=== PATIENT | male | born 1970 | race Caucasian/White ===

== ENCOUNTER 2018-03-18 17:52 | Emergency (ER) | payer MEDICAID, SELFPAY ==
[2018-03-18 17:54] VITALS: BP 115/70; PULSE 112; RESP 16; TEMP 37.7; O2SAT 100; BMI 22.4
--- NOTE | 2018-03-18 18:16 | CT_ITS ---
STUDY: CT SOFT TISSUE NECK WITH CONTRAST REASON FOR EXAM: Male, 47 years old. LEFT SIDED NECK PAIN AND SWELLING X 3 DAYS RADIATION DOSAGE (If Supplied By Facility): CTDIvol = ( 16.51 ) mGy, DLP = ( 482.39 ) mGycm TECHNIQUE: The patient was scanned in a multi-detector CT scanner. High resolution transaxial imaging was performed following intravenous administration of 100 ml of Isovue 300 contrast material. Sagittal and coronal images were reconstructed. Individualized dose optimization techniques were used for this CT. COMPARISON: None. FINDINGS: Normal bilateral parotid glands. 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 Normal bilateral parapharyngeal spaces. Normal bilateral carotid spaces. Soft tissue inflammatory changes overlying the left side of the neck. There is underlying left-sided cervical adenopathy. Normal bilateral sublingual and submandibular glands and spaces. Normal visualized nasopharynx. Normal retropharyngeal space. Normal perivertebral space. Normal visualized bilateral faucial tonsils. The visualized tongue, tongue base and oropharynx are normal. Normal epiglottis, bilateral vallecula and hypopharynx. The pre-epiglottic and paraglottic adipose spaces are normal. Normal visualized bilateral piriform sinuses, aryepiglottic folds, vocal cords, and arytenoid-cricoid articulations. Normal subglottic trachea. Normal bilateral lobes of the thyroid gland. There are scattered blebs and bullae. This can be seen in pulmonary emphysema. Normal visualized paranasal sinuses. Normal visualized cervical spine. CT/Soft Tissue Neck WITH Contrast IMPRESSION: Soft tissue inflammatory changes overlying the left side of the neck. There is underlying left-sided cervical adenopathy. This may reflect a cellulitis. Electronically Signed: Black Gunter MD at 19:42 EDT , Service support ,
[2018-03-18] MEDS: Ketorolac 30 MG/ML Syringe IV (18:46)
[2018-03-18] MEDS: 0.9% Normal Saline 1,000 ML 999 ML IV (18:46)
[2018-03-18 18:53] LABS: Absolute Lymphocyte Count 2.36 X10^3/ul (0.83-4.51); Absolute Neutrophil Count 6.6 X10^3/uL (2.0-7.7); Basophil# 0.01 X10^3/uL; Basophil% 0.1 % (0-1); Eosinophil# 0.14 X10^3/uL; Eosinophils% 1.4 % (0-5); Hematocrit 41.3 % (40-54); Lymphocyte # 2.36 X10^3/ul (4.0); Lymphocyte % 23.9 % (19-41); Mean Corp Hgb Conc 33.9 g/gl (32-36); Mean Corpuscular Hgb 30.4 pg (27.0-32.0); Mean Corpuscular Volume 89.8 fL (80-94); Mean Platelet Vol. 9.1 fl (6.2-12.0); Monocyte# 0.74 X10^3/uL; Monocyte% 7.5 % (0-10); Neutrophil # 6.62 X10^3/uL (2.7-7.7); Neutrophil % 66.9 % (47-70); Platelet Count 252 K/mm3 (150-450); RBC Distribution Width CV 15.1 % (11.6-14.6); RBC Distribution Width SD 49.7 fl (35.1-43.9); White Blood Count 9.9 K/mm3 (4.4-11.0)
[2018-03-18 18:56] LABS: POSITIVE COUNT NO; POSITIVE DIFFERENTIAL NO; POSITIVE MORPHOLOGY NO
[2018-03-18 19:06] LABS: Anion Gap 3 (5-15); BUN 9 mg/dL (7-18); BUN/Creat Ratio 8.8 RATIO (10-20); Calcium,Total 8.7 mg/dL (8.5-10.1); Chloride 106 mmol/L (98-107); Creatinine, Serum 1.02 mg/dL (0.70-1.30); EST Glomerular Filtration Rate 84 mL/min (>60); Est Glom Filt Rate - Afr Amer 101 mL/min (>60); Estimated Creatinine Clearance 89.13 ml/min; Glucose 98 mg/dL (74-106); Potassium 4.1 mmol/L (3.5-5.1); Sodium Level 140 mmol/L (136-145)
--- NOTE | 2018-03-18 20:06 | ED.DCSUM_ITS ---
- ER Visit Summary Date of Service: 03/18/18 Chief Complaint: Left neck pain and swelling History of Present Illness: The patient is a 47 M who first noticed some swelling and tenderness along the left side of his neck yesterday. He has had some mild rhinorrhea but really no other symptoms. He denies any fever sore throat nausea vomiting diarrhea. He has no history of prior similar symptoms. He denies medical history. Physical Examination: Afebrile vitals are notable for heart rate 112 otherwise normal Moist mucous membranes Tympanic membranes normal Oropharynx clear no uvular deviation no trismus There is some slight soft tissue swelling along left side of the neck which is slightly erythematous however the patient does have some sunburn and bray on his face and neck as well so this is somewhat difficult to appreciate Heart is regular rhythm tachycardia Lungs are clear Abdomen soft Test Results: CBC BMP normal rapid strep negative. CT of the soft tissue of the neck shows left-sided inflammatory changes in cervical adenopathy otherwise normal Emergency Department Course and Treatment: Patient's workup is suggestive of cellulitis. I see no evidence of complications such as abscess. He has normal laboratory studies and I believe is a good candidate for outpatient treatment. Treated with Keflex and Bactrim. He was instructed on signs and symptoms to monitor for, conditions under which to return to the emergency department. He was discharged. Treatment Plan: [] Disposition: Discharge Impression: Cellulitis This note was generated with [employer] dictation software. It may contain incorrect words, spelling, and punctuation that were not noted in review of the chart prior to signing ED Disposition - Plan for ED Patient: Chief Complaint: General Illness Referrals: Edward Damon DO [Primary Care Provider] -
--- NOTE | 2018-03-18 20:06 | ED.DEP ---
ED Disposition - Plan for ED Patient: Chief Complaint: General Illness Instructions: ED Infec Skin Cellulitis Prescriptions: Cephalexin [Keflex] 500 mg PO Q6 #40 cap Smz/Tmp Ds [Bactrim Ds] 1 tab PO BID #20 tab Referrals: Edward Damon DO [Primary Care Provider] -
[2018-03-18 20:18] VITALS: PULSE 77; O2SAT 98
== END 2018-03-18 20:19 | disposition home or self-care (01) ==
PROVIDERS: Emergency Provider Emergency Medicine; Family Provider Preventive Medicine Occupational Medicine; PCP Preventive Medicine Occupational Medicine
DX: L03.221 Cellulitis of neck (principal); Z72.0 Tobacco use
CPT/HCPCS: 70491; 80048; 85025; 87880; 96361; 96374; 99283; J7030; Q9967; A4216

== ENCOUNTER 2018-05-09 01:23 | Emergency (ER) | payer MEDICAID, SELFPAY ==
[2018-05-09 01:24] VITALS: BP 120/87; PULSE 88; RESP 16; TEMP 37.2; O2SAT 97; BMI 22.1
--- NOTE | 2018-05-09 01:59 | CT_ITS ---
STUDY: CT SOFT TISSUE NECK WITH CONTRAST REASON FOR EXAM: Male, 47 years old. Left-sided neck mass. RADIATION DOSAGE (If Supplied By Facility): CTDIvol = ( 16.38 ) mGy, DLP = ( 400.80 ) mGycm TECHNIQUE: The patient was scanned in a multi-detector CT scanner. High resolution transaxial imaging was performed following intravenous administration of 75 ml of Isovue 370 contrast material. Sagittal and coronal images were reconstructed. Individualized dose optimization techniques were used for this CT. COMPARISON: CT of the neck dated March 18, 2018. FINDINGS: Normal bilateral parotid glands. Normal bilateral personal financial advisor spaces. Normal bilateral parapharyngeal spaces. Normal bilateral carotid spaces. Normal bilateral sublingual and submandibular glands and spaces. Normal visualized nasopharynx. Normal retropharyngeal space. Normal perivertebral space. Normal visualized bilateral faucial tonsils. The visualized tongue, tongue base and oropharynx are normal. Measuring approximately 2.0 x 2.0 x 2.4 cm in size. This is similar to the previous CT. There is an. Enlarged left-sided level 2A lymph node There is no demonstrated solid or cystic mass lesion. There is no abnormal contrast enhancement. Normal epiglottis, bilateral vallecula and hypopharynx. The pre-epiglottic and paraglottic adipose spaces are normal. Normal visualized bilateral piriform sinuses, aryepiglottic folds, vocal cords, and arytenoid-cricoid articulations. Normal subglottic trachea. Normal bilateral lobes of the thyroid gland. There are small lucencies visible the lung apices probably related to sequela of paraseptal and centrilobular emphysema. There is a small left maxillary mucous retention cyst. There are mild multilevel degenerative changes of the cervical spine. CT/Soft Tissue Neck WITH Contrast IMPRESSION: Left-sided neck mass corresponds to what probably represents an enlarged left-sided level 2A node. Differential considerations include metastatic squamous cell carcinoma, and lymphoma. Electronically Signed: Lakeisha De La Torre MD at 3:32 EDT , Service support ,
[2018-05-09] MEDS: Ketorolac 30 MG/ML Syringe IV (02:08)
[2018-05-09 02:27] LABS: Absolute Lymphocyte Count 2.89 X10^3/ul (0.83-4.51); Absolute Neutrophil Count 5.5 X10^3/uL (2.0-7.7); Basophil# 0.03 X10^3/uL; Basophil% 0.3 % (0-1); Eosinophil# 0.37 X10^3/uL; Eosinophils% 3.9 % (0-5); Hematocrit 37.7 % (40-54); Hemoglobin 12.9 g/dl (13.0-16.5); Lymphocyte # 2.89 X10^3/ul (4.0); Lymphocyte % 30.5 % (19-41); Mean Corp Hgb Conc 34.2 g/gl (32-36); Mean Corpuscular Hgb 30.7 pg (27.0-32.0); Mean Corpuscular Volume 89.8 fL (80-94); Mean Platelet Vol. 9.1 fl (6.2-12.0); Monocyte# 0.72 X10^3/uL; Monocyte% 7.6 % (0-10); Neutrophil # 5.47 X10^3/uL (2.7-7.7); Neutrophil % 57.6 % (47-70); POSITIVE COUNT NO; POSITIVE DIFFERENTIAL NO; POSITIVE MORPHOLOGY NO; Platelet Count 239 K/mm3 (150-450); RBC Distribution Width CV 14.6 % (11.6-14.6); RBC Distribution Width SD 47.3 fl (35.1-43.9); White Blood Count 9.5 K/mm3 (4.4-11.0)
[2018-05-09 02:32] LABS: Anion Gap 7 (5-15); BUN 12 mg/dL (7-18); BUN/Creat Ratio 13.1 RATIO (10-20); Calcium,Total 8.1 mg/dL (8.5-10.1); Chloride 106 mmol/L (98-107); Creatinine, Serum 0.91 mg/dL (0.70-1.30); EST Glomerular Filtration Rate 95 mL/min (>60); Est Glom Filt Rate - Afr Amer 115 mL/min (>60); Estimated Creatinine Clearance 98.65 ml/min; Glucose 97 mg/dL (74-106); Potassium 3.7 mmol/L (3.5-5.1); Sodium Level 142 mmol/L (136-145)
--- NOTE | 2018-05-09 03:50 | RAD_ITS ---
STUDY: X-RAY CHEST REASON FOR EXAM: Male, 47 years old. Cough. TECHNIQUE: PA and lateral views of the chest. COMPARISON: CT of the chest dated September 24, 2016. FINDINGS: Lungs are expanded. There appears to be bilateral interstitial thickening. There also appears to patchy left basilar airspace disease and/or atelectasis possibly secondary to pneumonia. There is no demonstrated pleural abnormality. Normal size heart. There are calcified mediastinal and hilar lymph nodes. Normal visualized pulmonary arteries. Normal visualized aortic arch and descending thoracic aorta. There are diffuse degenerative changes of the visualized thoracic spine. Normal visualized ribs, clavicles, and shoulders. There is no demonstrated abnormality of the visualized soft tissue structures of the upper abdomen. RAD/Chest PA and Lateral IMPRESSION: Patchy left basilar airspace disease and/or atelectasis. Electronically Signed: Lakeisha De La Torre MD at 4:30 EDT , Service support ,
--- NOTE | 2018-05-09 04:18 | ED.VISSUMM ---
- ER Visit Summary Date of Service: 05/09/18 Chief Complaint: [Sore throat and lump to left side of neck.] History of Present Illness: The patient is a 47 M [presents the emergency department with complaint of a left on the left side of his neck for about a month. Patient states that he was seen for the same complaint about a month ago and was started on an antibiotic but did not finish it because he went to residential. While in residential patient was given some sort of an antibiotic but they did not continue once he got released. Patient complains of a scratchy throat. Patient denies any fever. Patient denies any weight loss. Patient has no medical history however he is a smoker. Patient admits to occasional marijuana use. Patient drinks alcohol occasionally.] Physical Examination: [HEENT-PERRLA, EOMI. Cranial nerves II through XII grossly intact. TMs clear. Mucous membranes moist. Patient has a tender swollen mass to the submandibular region of the left side of the neck. There is no erythema or cellulitis associated with it. Pharynx slightly erythematous without exudates. Uvula midline and no trismus. Cardiovascular-regular rate and rhythm without murmur or ectopy Lungs-clear to auscultation, chest wall stable without crepitus or subcu emphysema Abdomen-normoactive bowel sounds, soft, nontender, no rebound or rigidity, no peritoneal signs. Extremities-intact ?4, normal range of motion, normal pulses, atraumatic] Test Results: [CBC with differential obtained was normal. Chemistries were normal. Strep screen was negative. Throat culture was sent. CT scan of the neck obtained showed enlarged level 2A lymph node. The differential includes metastatic squamous cell carcinoma versus lymphoma.] Chest x-ray obtained showed left lower lobe airspace disease versus atelectasis. Emergency Department Course and Treatment: [Patient will be started on doxycycline and will be referred to ENT for follow-up. At this point patient understands is unclear the etiology of the enlarged lymph node in the left side of his neck. I discussed the possibility of metastatic carcinoma versus lymphoma. Patient understands the importance of following up to further evaluate and understands that he may need a biopsy of this area.] Treatment Plan: [Patient will be referred to ENT for follow-up and will be started on doxycycline] Disposition: [Discharged home in stable condition] Impression: [Left neck mass] This note was generated with [employer] dictation software. It may contain incorrect words, spelling, and punctuation that were not noted in review of the chart prior to signing ED Disposition - Plan for ED Patient: Chief Complaint: Sore Throat Referrals: Ewdard Damon DO [Primary Care Provider] -
--- NOTE | 2018-05-09 04:40 | ED.DEP ---
ED Disposition - Plan for ED Patient: Chief Complaint: Sore Throat Instructions: ED Cervical Adenitis Abx Tx Prescriptions: Doxycycline Monohydrate 100 mg PO BID #20 cap Referrals: Edward Damon DO [Primary Care Provider] - Wesley Godoy MD [STAFF PHYSICIAN] - 3-5 Days Additional Instructions: You have a left neck mass/ swollen Lymph node that is concerning for Metastatic Squamous Cell carcinoma versus Lymphoma. You need further testing to evaluate this . Follow up with DR. Godoy for further evaluation. I also advise you to quit smoking.
--- NOTE | 2018-05-09 04:44 | ED.DEP ---
ED Disposition - Plan for ED Patient: Chief Complaint: Sore Throat Instructions: ED Cervical Adenitis Abx Tx Prescriptions: Doxycycline Monohydrate 100 mg PO BID #20 cap Referrals: Wesley Godoy MD [STAFF PHYSICIAN] - 3-5 Days Edward Damon DO [Primary Care Provider] - Additional Instructions: You have a left neck mass/ swollen Lymph node that is concerning for Metastatic Squamous Cell carcinoma versus Lymphoma. You need further testing to evaluate this . Follow up with DR. Godoy for further evaluation. I also advise you to quit smoking.
[2018-05-09 05:05] VITALS: BP 100/68; PULSE 77; RESP 16; O2SAT 98
== END 2018-05-09 05:05 | disposition home or self-care (01) ==
PROVIDERS: Emergency Provider Emergency Medicine; Family Provider Preventive Medicine Occupational Medicine; PCP Preventive Medicine Occupational Medicine
DX: R22.1 Localized swelling, mass and lump, neck (principal); F12.90 Cannabis use, unspecified, uncomplicated; Z72.0 Tobacco use
CPT/HCPCS: 70491; 71046; 80048; 85025; 87070; 87077; 87880; 96374; 99283; Q9967; A4216

== ENCOUNTER 2019-07-25 17:51 | Emergency (ER) | payer MEDICAID, SELFPAY ==
[2019-07-25 17:52] VITALS: BP 116/79; PULSE 121; RESP 16; TEMP 36.7; O2SAT 95; BMI 24.3
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
[2019-07-25] MEDS: HYDROcodone Bitartrate/Apap 5/325 Tablet PO (18:37)
--- NOTE | 2019-07-25 18:44 | RAD_ITS ---
STUDY: X-RAY - UNILATERAL RIBS ( LEFT ) WITH CHEST REASON FOR EXAM: Male, 49 years old. Pain TECHNIQUE - RIBS: 4 view(s) of the ribs. TECHNIQUE - CHEST: Frontal view COMPARISON: None. FINDINGS - RIBS: Normal visualized ribs without a demonstrated fracture. FINDINGS - CHEST: The lungs are expanded. Left upper lobe calcified granuloma. Normal size heart. Normal mediastinum and nitesh. Normal visualized pulmonary arteries. Normal visualized aortic arch and descending thoracic aorta. Degenerative changes of the thoracic spine. Normal visualized ribs, clavicles, and shoulders. There is no demonstrated abnormality of the visualized soft tissue structures of the upper abdomen. RAD/Ribs Uni Min 3V w/PA Chest IMPRESSION: RIBS: Normal x-ray examination of the ribs. CHEST: No acute pulmonary pathology of the chest. Electronically Signed: Ananth Calderón DO at 19:13 EDT Tel [phone], Service support ,
[2019-07-25 19:54] VITALS: PULSE 78; RESP 18; O2SAT 94
== END 2019-07-25 19:55 | disposition home or self-care (01) ==
PROVIDERS: Emergency Provider Emergency Medicine; Family Provider Preventive Medicine Occupational Medicine; PCP Preventive Medicine Occupational Medicine
DX: S20.212A Contusion of left front wall of thorax, initial encounter (principal); Y04.2XXA Assault by strike against or bumped into by another person, initial encounter; Y93.89 Activity, other specified; Y92.149 Unspecified place in prison as the place of occurrence of the external cause; F17.200 Nicotine dependence, unspecified, uncomplicated
CPT/HCPCS: 71101; 99283

== ENCOUNTER 2020-04-27 10:59 | Emergency (ER) | payer MEDICAID, SELFPAY ==
[2020-04-27 11:00] VITALS: BP 129/94; PULSE 89; RESP 28; TEMP 37.2; O2SAT 99; BMI 21.4
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
[2020-04-27] MEDS: Acetaminophen 500 MG Tablet 1000 MG PO (12:06)
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
[2020-04-27 13:00] VITALS: BP 102/76; PULSE 80; RESP 17; O2SAT 100
--- NOTE | 2020-04-27 13:00 | ED.RN ---
DISCHARGE INSTRUCTIONS GIVEN TO AND REVIEWED WITH PATIENT, PATIENT DENIES QUESTIONS OR CONCERNS AND VOICES UNDERSTANDING OF DISCHARGE INSTRUCTIONS. PT AMBULATES OUT OF ROOM WITHOUT DIFFICULTY.
== END 2020-04-27 13:01 | disposition home or self-care (01) ==
LOC: ED 12:22
PROVIDERS: Emergency Provider Emergency Medicine; PCP Preventive Medicine Occupational Medicine
DX: R07.89 Other chest pain (principal); Z72.0 Tobacco use
CPT/HCPCS: 71045; 99284

== ENCOUNTER 2021-04-08 14:50 | Emergency (ER) | payer MEDICAID, SELFPAY ==
[2021-04-08 14:50] VITALS: BP 117/81; PULSE 95; RESP 14; TEMP 36.4; O2SAT 97; BMI 27.6
--- NOTE | 2021-04-08 15:19 | EDS_ITS ---
HPI History of Present Illness Chief Complaint: Laceration Informant: patient Occured/Mechanism Comment: Accidentally cut with a knife Onset/Context/Timing Onset: Today Context: Sudden Onset Timing: Continuous Quality of Pain: Aching and Throbbing Worsened by: Nothing Relieved by: Nothing Associated Symptoms Associated Symptoms: Positive for Parasthesia and Loss of Funtion; Negative for Weakness Narrative Narrative: Patient presents with a laceration to his right thumb that occurred today. Patient states he was using a knife to cut a car. Patient states the knife accidentally closed up on his right thumb. Patient admits to some tingling in the tip of his finger. Patient denies any weakness. Patient states the bleeding has been persistent. Patient states his last tetanus was within 5 years. Patient denies any other injuries. Tetanus Immunization: <5 years PFSH PFSH no medical history Allergy/AdvReac Type Severity Reaction Status Date / Time No Known Allergies Allergy Verified 04/08/21 14:52 no surgical history Social History Smoking Status: Current every day smoker tobacco type: cigarettes ROS ROS ED Constitutional Constitutional ED: Denies chills or fever(s) Eyes Eyes: Denies blurry vision or change in vision ENT ENT ED: Denies rhinorrhea or sore throat Cardiovascular Cardiovascular: Denies chest pain or palpitations Respiratory/Chest Respiratory/Chest: Denies cough or dyspnea Gastrointestinal Gastrointestinal: Denies nausea or vomiting Genitourinary Genitourinary ED: Denies dysuria or hematuria Musculoskeletal Musculoskeletal: Denies back pain or neck pain Integumentary Denies abscess or rash Neurologic Neurologic: Denies headache(s) or weakness Allergic/Immunologic Allergic/Immunologic ED: Denies mouth swelling or urticaria EXAM Physical Exam Const Vital Signs: 04/08/21 14:50 Temperature 97.5 F L Temperature Source Temporal Pulse Rate 95 Respiratory Rate 14 Blood Pressure 117/81 H Blood Pressure Mean 93 Pulse Ox 97 Oxygen Delivery Method Room Air Positive well nourished and well developed General Appearance ED: well developed HEENT Reports moist mucous membranes Neck full ROM and supple Extremity Right Upper Extremity: hand and digits inspection (There is a 2 cm full- thickness linear flap laceration on the dorsal aspect of the right thumb just ulnar to the nailbed and nail plate. There is moderate bleeding. There are no foreign bodies.), palpation (There is no tenderness to palpation.), ROM (There is full range of motion of the IP and MP joints of the right thumb), neurovascular exam (Capillary refill was less than 2 seconds in all digits. Sensation was intact to light touch in all digits.) and tendon exam (There are no tendon lacerations noted.) Neuro oriented x3, CN's II-XII intact bilaterally, moves all extremities, no focal motor deficits and no sensory deficits noted Sensorium / Orientation: alert Psych mental status grossly normal MDM MDM MDM Narrative Medical decision making narrative: The wound was cleaned and irrigated with copious amounts normal saline. LET gel was applied to the wound. The wound was closed with Dermabond skin adhesive. Patient tolerated the procedure well. Patient was instructed to keep the wound clean and dry. Patient was instructed to avoid bacitracin, Neosporin, triple antibiotic ointment, or other Vaseline- based ointments. Patient was instructed to follow-up with his primary care physician in 5 to 7 days. Patient was instructed return if worse in any way. Patient understood and was agreeable with the plan. All questions were answered. Procedures Lacerations Right thumb: Length: 1.5 cm Depth: Skin Shape: Linear Prep: Sterile Conditions and Chlorhexadine Laceration repair: Wound explored and - (Dermabond) Comment: The wound was closed with Dermabond skin adhesive. Discharge Plan Triage Chief Complaint: Laceration ED Provider: Wesley Cerna Dx/Rx/DC Orders Clinical Impression: Laceration of right thumb Instructions: ED Laceration, Extremity: Skin Glue Primary Care Provider: Care Physician,No Primary Referrals: Paddy Vázquez MD [STAFF PHYSICIAN] - 5-7 Days Care Physician,No Primary [Primary Care Provider] - Disposition Disposition: Home, self care
[2021-04-08] MEDS: Lidocaine/Epi/Tetracaine 50 ML 1 APPLIC TOPICAL (15:45)
--- NOTE | 2021-04-08 16:51 | ED.RN ---
PT REFUSES D/C VS.
== END 2021-04-08 16:53 | disposition home or self-care (01) ==
PROVIDERS: Emergency Provider Emergency Medicine
DX: S61.011A Laceration without foreign body of right thumb without damage to nail, initial encounter (principal); F17.210 Nicotine dependence, cigarettes, uncomplicated; W26.0XXA Contact with knife, initial encounter
CPT/HCPCS: G0168; 99282

== ENCOUNTER 2021-07-24 04:43 | Emergency (ER) | payer MEDICAID, SELFPAY ==
[2021-07-24 04:44] VITALS: BP 135/95; PULSE 92; RESP 16; TEMP 36.4; O2SAT 99; BMI 24.3
--- NOTE | 2021-07-24 04:58 | EX.ED.DYSGE1 ---
HPI History of Present Illness Chief Complaint: Other, Pain/Inj Informant: patient Narrative Narrative: 51-year-old male states that he has ticks inside of his body. He states that he had some removed from his feet at an outside hospital but did not get all of them. He states he has been pushing the ticks out of his eyes all night. When asked if he could do that now he states it is not able to be done. He states he needs the overhead lamp turned on him which will draw the text out of his stomach in his chest. He denies taking any drugs. He denies any suicidal or homicidal ideation. PFSH PFS Medical History unable to obtain no medical history Home Medications NK 07/24/21 [History Last Taken Unknown] Allergy/AdvReac Type Severity Reaction Status Date / Time No Known Allergies Allergy Verified 07/24/21 04:46 Surgical History unable to obtain Social History (Updated 07/24/21 @ 04:[address] Tu Eubanks, DO) current gender identity: male Smoking Status: Current every day smoker tobacco type: cigarettes ROS ROS ED Constitutional Constitutional ED: Denies chills or weight loss Eyes Eyes: Denies change in vision or diplopia ENT ENT ED: Denies ear pain, rhinorrhea or sore throat Cardiovascular Cardiovascular: Denies chest pain, orthopnea, palpitations or racing heartbeat Respiratory/Chest Respiratory/Chest: Denies cough, dyspnea or orthopnea Gastrointestinal Gastrointestinal: Denies abdominal pain, diarrhea, nausea or vomiting Genitourinary Genitourinary ED: Denies dysuria, hematuria or urinary frequency Musculoskeletal Musculoskeletal: Denies arthralgias or myalgias Integumentary Denies abscess or rash Neurologic Neurologic: Denies headache(s) or weakness Psychiatric Psychiatric: Denies anxiety, depression, suicidal ideation or suicidal thoughts Endocrine Endocrinology: Denies polydipsia, polyphagia or polyuria Allergic/Immunologic Allergic/Immunologic ED: Denies mouth swelling, tongue swelling or urticaria EXAM Physical Exam Const Vital Signs: 07/24/21 04:44 07/24/21 04:52 Temperature 97.6 F L Temperature Source Temporal Pulse Rate 92 Respiratory Rate 16 Respiratory Effort Normal Respiratory Pattern Normal Blood Pressure 135/95 H Blood Pressure Mean 108 Pulse Ox 99 Positive well nourished, well developed and unkempt General Appearance ED: unkempt and well developed HEENT Reports normocephalic, head/scalp atraumatic and moist mucous membranes Eyes PERRL and EOMs intact bilaterally Neck no lymphadenopathy, supple and no JVD Resp normal respiratory effort and clear to auscultation bilaterally Cardio regular rate, regular rhythm and no murmurs GI normal to inspection, nondistended, normoactive bowel sounds and non-tender Palpation: soft Back/Spine no CVA tenderness and normal ROM Extremity normal to inspection General Extremety ED: Negative for edema General Extremity: Negative for edema Neuro oriented x3 and CN's II-XII intact bilaterally Sensorium / Orientation: alert Motor Exam: strength 5/5 throughout Psych mental status grossly normal Appearance: unkempt Attitude: No agitated Mood & Affect: Negative for depressed, anxious or tearful Skin no rashes or lesions noted and no wounds MDM MDM MDM Narrative Medical decision making narrative: I turned the overhead light on like the patient suggested but nothing happened. I informed him I do not believe I am able to help him tonight. I do not believe the patient has a medical emergency that I am able to assist him with. Discharge Plan Triage Chief Complaint: Other, Pain/Inj ED Provider: Tu Eubanks Dx/Rx/DC Orders Clinical Impression: Delusions of parasitosis Prescriptions: No Action NK RF: 0 Primary Care Provider: Care Physician,No Primary Referrals: Katlin Joe [NON-STAFF] - As Needed (for primary care) Care Physician,No Primary [Primary Care Provider] - Disposition Disposition: Home, Self Care
== END 2021-07-24 05:11 | disposition home or self-care (01) ==
LOC: ED 05:01
PROVIDERS: Emergency Provider Emergency Medicine
DX: F22 Delusional disorders (principal); F17.210 Nicotine dependence, cigarettes, uncomplicated
CPT/HCPCS: 99282

== ENCOUNTER 2021-08-25 02:28 | Emergency (ER) | payer MEDICAID, SELFPAY ==
[2021-08-25 02:30] VITALS: BP 109/74; PULSE 97; RESP 16; TEMP 36.6; O2SAT 98; BMI 21.8
--- NOTE | 2021-08-25 02:36 | RAD_ITS ---
STUDY: X-RAY CHEST REASON FOR EXAM: Male, 51 years old. Midsternal chest pain TECHNIQUE: PA and lateral views of the chest. COMPARISON: 04/27/2020 FINDINGS: Mild prominence of interstitial markings at bilateral lung bases, unchanged. There is no demonstrated pleural abnormality. No pneumothorax. Normal size heart. Normal mediastinum and nitesh. Normal visualized pulmonary arteries. There is atherosclerotic calcification of the aortic arch . Mild S-shaped scoliosis of the thoracolumbar spine with multilevel degenerative change. Normal visualized ribs, clavicles, and shoulders. There is no demonstrated abnormality of the visualized soft tissue structures of the upper abdomen. RAD/Chest PA and Lateral IMPRESSION: Chronic bibasilar interstitial change with no acute cardiopulmonary disease Electronically Signed: Ashwin Hoang MD at 3:14 EDT Tel , Service support ,
--- NOTE | 2021-08-25 02:36 | EKG12_ITS ---
Test Reason : CP Blood Pressure : / mmHG Vent. Rate : 091 BPM Atrial Rate : 091 BPM P-R Int : 142 ms QRS Dur : 082 ms QT Int : 380 ms P-R-T Axes : 071 068 050 degrees QTc Int : 467 ms Normal sinus rhythm Normal ECG Confirmed by RYLEY VIVEROS, ADAM ([id number]), greeting card editor AYALA SURESH ([id number]) on 08/31/2021 8:27:35 AM Referred By: BUBBA Confirmed By:ADAM HEDRICK MD
--- NOTE | 2021-08-25 02:37 | ED.VIS.CHEST ---
HPI History of Present Illness Chief Complaint: Nausea/Vomiting Detail of Chief Complaint: Chest pain with nausea Informant: patient Onset/Context/Timing Onset: Hours Activity at onset: sudden and rest Timing: Continuous Quality: Positive for Sharp Location: Substernal Current Severity: Mild Maximum Severity: Severe Worsened By: Nothing Relieved By: Nothing Associated Symptoms: Negative for Nausea, Vomiting, Diaphoresis, Dyspnea, Cough, Fever, Lightheadedness, Acid Reflux and Palpitations Narrative Narrative: Patient is a middle-age male with no significant past medical history on no medication who presents with sharp midsternal chest pain with no associated symptoms or radiation. He denies history of VTE. He denies leg pain, swelling discoloration. He denies change in the color, consistency or caliber of his stool. He denies any viral upper respiratory symptoms. He does endorse smoking 1 pack/day since the age of 13. There is no known coronary disease in the family. There is no known history of biliary disease. He denies intolerance to greasy or fried foods. He denies history of coronary disease in the family Prior Similar Symptoms: Yes (1 year ago and etiology was undetermined) Recent Illness/Hospitalization: No CVD Risk Factors: Positive for Smoking; Negative for Hypertension, Diabetes, Hypercholesterolemia and Family History 1' </=55 PE Risk Factors: Negative for Recent Travel/Surgery, Recent Immobilization, Prior DVT or PE, Cancer and OCP + Smoking + >/=35 TAD Risk Factors: Negative for Marfan's Syndrome, Hypertension and Family History PFSH PFSH Medical History no medical history no medical history Home Medications NK 07/24/21 [History Last Taken Unknown] Allergy/AdvReac Type Severity Reaction Status Date / Time No Known Allergies Allergy Verified 08/25/21 02:30 Family History no significant family his no significant family history Surgical History unable to obtain no surgical history Social History (Updated 08/25/21 @ 02:[address] Edward Yu MD) household members: none Smoking Status: Current every day smoker tobacco type: cigarettes alcohol intake: current alcohol intake frequency: holidays/special occasions only substance use type: marijuana ROS ROS ED Constitutional Constitutional ED: Reports sweats, weight loss and other Details: Patient reports 5 pound weight loss that was unintentional over the last month and night sweats for the past 2 to 3 weeks ; Denies chills, fever(s) or subjective Eyes Eyes: Reports none ENT ENT ED: Denies ear pain, rhinorrhea or sore throat Cardiovascular Cardiovascular: Reports as per HPI; Denies orthopnea Respiratory/Chest Respiratory/Chest: Denies cough, dyspnea, dyspnea on exertion, orthopnea or sputum Gastrointestinal Gastrointestinal: Denies abdominal pain, diarrhea, melena, nausea or vomiting Musculoskeletal Musculoskeletal: Denies arthralgias, back pain, myalgias or neck pain Integumentary Denies rash Neurologic Neurologic: Denies paresthesias or weakness Endocrine Endocrinology: Denies polydipsia, polyphagia or polyuria Hematologic/Lymphatic Hematologic/Lymphatic: Denies easy bleeding or easy bruising EXAM Physical Exam Const Vital Signs: 08/25/21 02:30 08/25/21 04:03 Temperature 97.8 F Temperature Source Temporal Pulse Rate 97 Respiratory Rate 16 Blood Pressure 109/74 102/72 Blood Pressure Mean 85 82 Pulse Ox 98 Oxygen Delivery Method Room Air Positive well nourished and well developed General Appearance ED: well developed and NAD; Negative for pallor HEENT Reports moist mucous membranes HEENT Narrative: Ears are normal. Nares are patent. Posterior pharynx unremarkable. normocephalic and atraumatic Eyes PERRL and EOMs intact bilaterally General Eye ED: Negative for pale conjunctiva or scleral icterus Neck no lymphadenopathy, supple and no JVD Chest Wall inspection of chest normal Resp normal respiratory effort and clear to auscultation bilaterally Effort and Inspection: respiratory distress Cardio regular rate, regular rhythm, S1 normal heart sound, S2 normal heart sound and no murmurs GI normal to inspection, nondistended, normoactive bowel sounds, soft to palpation, non-tender, non-distended and no masses GI Narrative: There is no pulsatile mass or abdominal bruit appreciated Back/Spine no CVA tenderness and no thoracic nor lumbar tenderness Extremity normal to inspection Extremity Narrative: There is no asymmetry, swelling, discoloration, leg vein distention, palpable cords or tenderness along the distribution of the deep venous system. Neuro oriented x3 and CN's II-XII intact bilaterally Sensorium / Orientation: awake and alert Psych mental status grossly normal Skin no rashes or lesions noted and no wounds General Skin Exam: Negative for jaundice or pallor Heart Score History: Slightly/Non-Suspicious ECG: Normal Age: >45 - <65 years Risk Factors: 1 or 2 Risk Factors Score: 2 MDM MDM MDM Narrative Medical decision making narrative: Patient with atypical chest discomfort. Differential includes cardiac versus noncardiac etiology. Patient is PERC negative. With reported night sweats and weight loss need to consider malignancy. Patient was reassessed at 0311. He is now complaining of nausea. Zofran was ordered. He still having discomfort. Based on location will treat with GI cocktail since this is not concerning for cardiac at this point. Patient was informed that his first troponin is normal however since it is greater than 3 a 2-hour needs to be drawn. Of note patient had to be awakened to inform him of his results. Lab Data Attestation: I reviewed the patient's lab results. Lab results narrative: First troponin is 9. Since his less than three 2-hour troponin was ordered. CBC reveals mild anemia. Basic metabolic panel reveals a slightly low potassium at 3.2 and slightly elevated BUN to creatinine ratio. Delta is 1. Patient states the pain is subsiding. He was given a GI cocktail. Labs: Laboratory Results - last 24 hr 08/25/21 08/25/21 08/25/21 02:29 02:29 04:29 WBC 9.6 RBC 4.46 L Hgb 12.9 L Hct 38.8 L MCV 87.0 MCH 28.9 MCHC 33.2 RDW Std Deviation 50.1 H RDW Coeff of Caterina 15.6 H Plt Count 280 MPV 9.4 Immature Gran % (Auto) 0.200 Neut % (Auto) 60.1 Lymph % (Auto) 27.6 Russell % (Auto) 8.3 Eos % (Auto) 3.5 Baso % (Auto) 0.3 Absolute Neuts (auto) 5.8 Absolute Lymphs (auto) 2.66 Nucleated RBC % 0 Sodium 139 Potassium 3.2 L Chloride 106 Carbon Dioxide 25.0 Anion Gap 8 BUN 23 H Creatinine 1.10 Estim Creat Clear Calc 76.98 Est GFR (MDRD) Af Amer 91 Est GFR (MDRD) Non-Af 76 BUN/Creatinine Ratio 20.9 H Glucose 96 Calcium 9.0 Troponin I High Sens 9 10 Radiography Chest X-Ray - ED: 2 View, Read by ED Physician (2 view chest x-ray interpreted by me at 0252. There is slight hyperaeration and granulomatous disease noted left perihilar region.), Normal, Heart, Bony Structures, No Acute Disease and Chronic Changes Diagnostic Testing: Clinical Impression(s) from Imaging Studies Chest X-Ray 08/25/21 02:36 IMPRESSION: Chronic bibasilar interstitial change with no acute cardiopulmonary disease Electronically Signed: Ashwin Hoang MD at 3:14 EDT Tel , Service support , EKG Initial EKG: Attestation: I personally reviewed and interpreted this EKG as follows: Interpretation: Sinus Rhythm (Ventricular rate 91. EKG is normal. IN interval is 142 ms. QS duration 82 ms. QT duration 380 ms. [place] is normal. There is no ischemic changes noted. This was obtained with symptoms) Discharge Plan Triage Chief Complaint: Nausea/Vomiting ED Provider: Edward Yu Dx/Rx/DC Orders Clinical Impression: Chest pain of unknown etiology Instructions: ED Chest Pain, Noncardiac Prescriptions: No Action NK RF: 0 Primary Care Provider: Care Physician,No Primary Referrals: Care Physician,No Primary [Primary Care Provider] - Doctor,Your [STAFF PHYSICIAN] - 3-5 Days if not improving Disposition Disposition: Home, Self Care
[2021-08-25 02:43] LABS: Absolute Lymphocyte Count 2.66 X10^3/uL (0.83-4.51); Absolute Neutrophil Count 5.8 X10^3/uL (2.0-7.7); Basophil# 0.03 X10^3/uL; Basophil% 0.3 % (0-1); Eosinophil# 0.34 X10^3/uL; Eosinophils% 3.5 % (0-5); Hematocrit 38.8 % (40-54); Hemoglobin 12.9 g/dL (13.0-16.5); Lymphocyte # 2.66 X10^3/ul (0.83-4.51); Lymphocyte % 27.6 % (19-41); Mean Corp Hgb Conc 33.2 g/dL (32-36); Mean Corpuscular Hgb 28.9 pg (27.0-32.0); Mean Platelet Vol. 9.4 fl (6.2-12.0); Monocyte% 8.3 % (0-10); NRBC Flagged by Analyzer 0 % (0-5); Neutrophil # 5.79 X10^3/uL (2.7-7.7); Neutrophil % 60.1 % (47-70); Platelet Count 280 K/mm3 (150-450); RBC Distribution Width CV 15.6 % (11.6-14.6); RBC Distribution Width SD 50.1 fl (35.1-43.9); Red Blood Count 4.46 M/mm3 (4.6-6.2); White Blood Count 9.6 K/mm3 (4.4-11.0)
[2021-08-25 02:56] LABS: Anion Gap 8 (5-15); BUN 23 mg/dL (7-18); BUN/Creat Ratio 20.9 RATIO (10-20); Chloride 106 mmol/L (98-107); EST Glomerular Filtration Rate 76 mL/min (>60); Est Glom Filt Rate - Afr Amer 91 mL/min (>60); Estimated Creatinine Clearance 76.98 ml/min; Glucose 96 mg/dL (74-106); Potassium 3.2 mmol/L (3.5-5.1); Sodium Level 139 mmol/L (136-145); Troponin-I HS 9 pg/mL (3.0-78.0)
[2021-08-25] MEDS: Mag Hydrox/Al Hydrox/Simeth 30 ML UDC PO (03:40)
[2021-08-25] MEDS: Ondansetron 4 MG/2 ML Vial IV (03:40)
[2021-08-25 04:03] VITALS: BP 102/72
[2021-08-25 04:58] LABS: Troponin-I HS 10 pg/mL (3.0-78.0)
== END 2021-08-25 05:23 | disposition home or self-care (01) ==
PROVIDERS: Emergency Provider Emergency Medicine
DX: R07.9 Chest pain, unspecified (principal); R11.2 Nausea with vomiting, unspecified; F17.210 Nicotine dependence, cigarettes, uncomplicated
CPT/HCPCS: 71046; 80048; 84484; 85025; 93005; 96374; 99285; A4216; J2405

== ENCOUNTER 2022-01-28 08:38 | Emergency (ER) | payer MEDICAID, SELFPAY ==
[2022-01-28 08:39] VITALS: BP 136/91; PULSE 99; RESP 16; TEMP 36.1; O2SAT 95; BMI 19.9
[2022-01-28 08:45] VITALS: BP 136/91; PULSE 99; RESP 16; TEMP 36.1; O2SAT 95
[2022-01-28] MEDS: Cephalexin 250 MG Capsule 500 MG PO (09:22)
--- NOTE | 2022-01-28 09:22 | EX.ED.DYSGE1 ---
HPI History of Present Illness Chief Complaint: General Illness Informant: patient Narrative Narrative: Presents for evaluation of rash right abdomen and right arm. Initial month ago rash left lower abdomen when he went to longterm states shortly after leaving he developed rash on his right side that is pruritic. States this morning rash on his right arm. No fevers. Denies change in soaps or detergents. Denies any medications. No other complaints. Prior similar symptoms: No PFSH PFSH Home Medications cephalexin 500 mg PO Q6 #40 cap 01/28/22 [Rx Last Taken Unknown] hydrocortisone 1 applic TOPICAL BID 14 Days #28.35 g 01/28/22 [Rx Last Taken Unknown] Allergy/AdvReac Type Severity Reaction Status Date / Time No Known Allergies Allergy Verified 08/25/21 02:30 Social History household members: none Smoking Status: Current every day smoker tobacco type: cigarettes alcohol intake: current alcohol intake frequency: holidays/special occasions only substance use type: marijuana ROS ROS ED Constitutional Constitutional ED: Denies chills, fever(s) or sweats Eyes Eyes: Denies change in vision ENT ENT ED: Denies dysphagia or sore throat Cardiovascular Cardiovascular: Denies chest pain, leg edema, palpitations or racing heartbeat Respiratory/Chest Respiratory/Chest: Denies cough, dyspnea or dyspnea on exertion Gastrointestinal Gastrointestinal: Denies abdominal pain, diarrhea, nausea or vomiting Genitourinary Genitourinary ED: Denies dysuria, hematuria or urinary frequency Musculoskeletal Musculoskeletal: Denies back pain, extremity pain or neck pain Integumentary Reports rash; Denies wounds Neurologic Neurologic: Denies headache(s), paresthesias or weakness EXAM Physical Exam Const Vital Signs: 01/28/22 08:39 01/28/22 08:45 01/28/22 08:48 Temperature 97.0 F L 97.0 F L Temperature Source Temporal Temporal Pulse Rate 99 99 Respiratory Rate 16 16 Respiratory Effort Normal Non-Labored Respiratory Pattern Normal Blood Pressure 136/91 H 136/91 H Blood Pressure Mean 106 106 Pulse Ox 95 95 Oxygen Delivery Method Room Air Room Air Positive well nourished and well developed General Appearance ED: well developed and NAD HEENT Reports moist mucous membranes normocephalic and atraumatic Eyes PERRL, EOMs intact bilaterally and conjunctivae normal General Eye ED: Yes normal appearance of both eyes Neck no lymphadenopathy and supple General: Negative for tenderness Chest Wall Chest: Negative for tenderness Resp normal respiratory effort and normal air movement Effort and Inspection: symmetric chest movement; Negative for respiratory distress Cardio regular rate, regular rhythm and no murmurs Peripheral Pulses: pulses 2+ throughout GI normal to inspection, nondistended, normoactive bowel sounds and non-tender Palpation: Negative for guarding or rebound tenderness present Back/Spine no CVA tenderness and no thoracic nor lumbar tenderness Extremity normal to inspection General Extremety ED: Negative for edema or tenderness General Extremity: Negative for edema Neuro oriented x3 and no sensory deficits noted Sensorium / Orientation: awake and alert Skin no rashes or lesions noted and no wounds Skin Narrative: Raise papular rash noted on diagram below. There were excoriations with scabbing. There is no induration. No drainage. No vesicular lesions noted. Resolved rash in left lower quadrant of abdomen. Image ED - Body Diagram Man: 1. 2. 3. 4. 5. 6. MDM MDM MDM Narrative Medical decision making narrative: Patient nonspecific dermatitis with excoriations. He was exposed in longterm prior to symptoms starting could be a contact dermatitis. There is excoriations erythema over the papular regions. With pruritic symptoms provide hydrocortisone cream, will cover with Keflex for concerns of superinfection with cellulitis due to excoriations. He is given follow-up as an outpatient. Discharge Plan Triage Chief Complaint: General Illness ED Provider: Desmond Warren Dx/Rx/DC Orders Clinical Impression: Acute dermatitis, Rash, Cellulitis Instructions: Cellulitis, ED Atopic Dermatitis (Adult) Prescriptions: New cephalexin [cephalexin] 500 MG capsule 500 mg PO Q6 Qty: 40 RF: 0 hydrocortisone 2.5 % ointment 1 applic topical BID 14 Days Qty: 28.35 RF: 0 Primary Care Provider: Care Physician,No Primary Referrals: Katlin Joe [NON-STAFF] - 1 Week if not improving Care Physician,No Primary [Primary Care Provider] - Disposition Disposition: Home, Self Care Discharge Date/Time: 01/28/22 09:24
== END 2022-01-28 09:24 | disposition home or self-care (01) ==
PROVIDERS: Emergency Provider Emergency Medicine; Visit Provider Emergency Medicine
DX: L30.9 Dermatitis, unspecified (principal); L03.311 Cellulitis of abdominal wall; L03.113 Cellulitis of right upper limb; F17.210 Nicotine dependence, cigarettes, uncomplicated
CPT/HCPCS: 99283; A4216

== ENCOUNTER 2022-07-20 03:47 | Emergency (ER) | payer MEDICAID, SELFPAY ==
--- NOTE | 2022-07-20 04:00 | RAD_ITS ---
STUDY: X-RAY CHEST REASON FOR EXAM: Male, 52 years old. Cough and weakness TECHNIQUE: Single AP portable view of the chest. COMPARISON: 04/27/2020 FINDINGS: The lungs are clear and expanded. There is no demonstrated pleural abnormality. Normal size heart. Normal mediastinum and nitesh. Normal visualized pulmonary arteries. Normal visualized aortic arch and descending thoracic aorta. Mild S-shaped scoliosis of the thoracolumbar spine with multilevel degenerative change. Normal visualized ribs, clavicles, and shoulders. There is no demonstrated abnormality of the visualized soft tissue structures of the upper abdomen. RAD/Chest PA and Lateral IMPRESSION: No acute cardiopulmonary disease Electronically Signed: Ashwin Hoang MD at 4:42 EDT ,
--- NOTE | 2022-07-20 05:30 | EX.ED.DYSGE1 ---
HPI History of Present Illness Informant: patient and EMS Onset/Context/Timing Onset: Hours (several) Context: Gradual Onset Timing: Continuous Quality: lightheaded Location: head Current Severity: Mild Maximum Severity: Moderate Worsened by: standing Relieved by: lying down Associated Symptoms Associated Symptoms: minor [employer] cough, myalgias, malaise, like something crawling in my veins Narrative Narrative: States for the last couple hours she has felt lightheaded and shaky. He also states he feels like something is crawling around in the veins of his arms and wants us to do a whole-body scan to figure out what is wrong. He states earlier than this he was feeling fine. He denies any other focal symptoms except for nausea. No headache, abdominal pain, shortness of breath, fevers or chills recently. Patient denies any vertiginous symptoms, or changes in his vision/diplopia. Moving his head does not change his symptoms but standing up does make him more lightheaded. He has had no loss of consciousness or near-syncope. PFSH PFSH unable to obtain (Patient states he does not know) no surgical history ROS ROS ED Constitutional Constitutional ED: Reports body ache(s) and malaise; Denies chills or fever(s) Eyes Eyes: Denies change in vision or diplopia ENT ENT ED: Denies rhinorrhea or sore throat Cardiovascular Cardiovascular: Reports lightheadedness; Denies chest pain or palpitations Respiratory/Chest Respiratory/Chest: Reports cough; Denies dyspnea Gastrointestinal Gastrointestinal: Reports nausea; Denies abdominal pain, diarrhea or vomiting Genitourinary Genitourinary ED: Denies dysuria or hematuria Musculoskeletal Musculoskeletal: Denies back pain or neck pain Integumentary Denies abscess or rash Neurologic Neurologic: Denies headache(s), paresthesias or weakness Psychiatric Psychiatric: Denies anxiety or suicidal thoughts EXAM Physical Exam Const Positive well nourished, well developed and unkempt General Appearance ED: unkempt, well developed and NAD HEENT Reports moist mucous membranes normocephalic and atraumatic Eyes PERRL and EOMs intact bilaterally Neck full ROM and supple Chest Wall inspection of chest normal and palpation of chest normal Resp normal respiratory effort and clear to auscultation bilaterally Cardio regular rate, regular rhythm and no murmurs Rate: Negative for tachycardic GI normal to inspection, nondistended, normoactive bowel sounds, non-tender and non-distended Auscultation: normoactive bowel sounds Palpation: soft Back/Spine no CVA tenderness General Back: other FROM Extremity Extremity Narrative: Scattered round nontender raised sores right forearm. No expressible discharge or bleeding. None on the left. Full range of motion throughout all joints. Not edematous. No palpable cords. General Extremety ED: Negative for edema, pulses abnormal or tenderness General Extremity: Negative for edema or pulses abnormal Neuro oriented x3, CN's II-XII intact bilaterally and no sensory deficits noted Sensorium / Orientation: awake and alert Motor Exam: strength 5/5 throughout Psych Appearance: unkempt Skin no rashes or lesions noted Skin Narrative: Several discrete right forearm wounds/lesions. See above. Do not appear infected. MDM MDM MDM Narrative Medical decision making narrative: Patient was seen during computer downtime, this documentation was entered after the fact. I reviewed his labs on paper, white blood count 11.28, hemoglobin 13.1, platelets 283. On his chemistries, his BUN is 25 with a creatinine of 1.09, and the rest of his electrolytes are all within normal limits. This is consistent with being mildly prerenal, and his orthostatics were mildly positive with a heart rate increase of about 40 when he went from sitting to standing and he was symptomatically lightheaded without syncope or near syncope. His COVID is negative. 2 view chest x-ray on my interpretation normal, radiology in agreement. We placed an IV and give him a liter of fluid he felt much better on reevaluation was ambulatory without dizziness and discharged in stable improved condition. Lab Data Attestation: I reviewed the patient's lab results. Discharge Plan Triage ED Provider: Fuad Santoyo Dx/Rx/DC Orders Clinical Impression: Mild dehydration, Orthostatic hypotension Instructions: ED Hypotension, Orthostatic Primary Care Provider: Care Physician,No Primary Referrals: Katlin Joe [Non-Staff] - 3-5 Days if not improving Care Physician,No Primary [Primary Care Provider] - Disposition Disposition: Home, Self Care
[2022-07-20 08:11] LABS: Hematocrit 39.8 % (40-54); Hemoglobin 13.1 g/dL (13.0-16.5); Mean Corpuscular Volume 89.6 fL (80-94); Red Blood Count 4.44 M/mm3 (4.6-6.2); White Blood Count 11.3 K/mm3 (4.4-11.0)
[2022-07-20 08:12] LABS: Mean Corp Hgb Conc 32.9 g/dL (32-36); Mean Corpuscular Hgb 29.5 pg (27.0-32.0); Mean Platelet Vol. 8.9 fl (6.2-12.0); Monocyte% 5.4 % (0-10); Neutrophil % 80.2 % (47-70); Platelet Count 283 K/mm3 (150-450); RBC Distribution Width SD 46.1 fl (35.1-43.9)
[2022-07-20 08:13] LABS: Absolute Lymphocyte Count 1.35 X10^3/uL (0.83-4.51); Absolute Neutrophil Count 9.1 X10^3/uL (2.0-7.7); Basophil% 0.5 % (0-1); Eosinophils% 1.6 % (0-5); Lymphocyte # 1.35 X10^3/ul (0.83-4.51); Monocyte# 0.61 X10^3/uL; Neutrophil # 9.05 X10^3/uL (2.7-7.7)
[2022-07-20 08:14] LABS: Basophil# 0.06 X10^3/uL
[2022-07-20 08:15] LABS: Eosinophil# 0.18 X10^3/uL
[2022-07-20 08:18] LABS: Anion Gap 8 (5-15); BUN 25 mg/dL (7-18); BUN/Creat Ratio 22.9 RATIO (10-20); Calcium,Total 9.1 mg/dL (8.5-10.1); Chloride 105 mmol/L (98-107); Creatinine, Serum 1.09 mg/dL (0.70-1.30); EST Glomerular Filtration Rate 76 mL/min (>60); Est Glom Filt Rate - Afr Amer 92 mL/min (>60); Glucose 141 mg/dL (74-106); Potassium 3.6 mmol/L (3.5-5.1); Sodium Level 140 mmol/L (136-145)
== END 2022-07-20 05:31 | disposition home or self-care (01) ==
PROVIDERS: Emergency Provider Emergency Medicine; Visit Provider Emergency Medicine
DX: I95.1 Orthostatic hypotension (principal); E86.0 Dehydration
CPT/HCPCS: 36415; 71046; 80048; 85025; 87811; 99284

== ENCOUNTER 2022-11-24 22:35 | Inpatient (IN) | payer MEDICAID, SELFPAY ==
[2022-11-24 22:36] VITALS: BP 112/72; PULSE 88; RESP 13; TEMP 35.7; O2SAT 94; BMI 23.3
--- NOTE | 2022-11-24 22:45 | EDS_ITS ---
HPI History of Present Illness Chief Complaint: Overdose Narrative Narrative: Patient is a 52-year-old male brought in by EMS secondary to overdose. EMS states that they were called by the patient's mother and reportedly found him unresponsive. They state when they arrived he was unresponsive but breathing. They administered intranasal and then intravenous Narcan and patient had improvement of his mental status. Patient is still mildly obtunded upon arrival and does not offer any further history PFSH PFS unable to obtain Home Medications cephalexin 500 mg capsule 500 mg PO Q6 #40 caps 01/28/22 [Rx Last Taken Unknown] hydrocortisone 2.5 % topical ointment 1 applic topical BID 14 days #28.35 grams 01/28/22 [Rx Last Taken Unknown] Allergy/AdvReac Type Severity Reaction Status Date / Time No Known Allergies Allergy Verified 08/10/22 10:15 Family History (Updated 11/25/22 @ 03:[address] Ana Maria Vazquez MD) Mother Diabetes Heart disease Social History (Updated 11/25/22 @ 03:[address] Ana Maria Vazquez MD) household members: family and none Smoking Status: Current every day smoker tobacco type: cigarettes alcohol intake: current alcohol intake frequency: holidays/special occasions only substance use type: marijuana, heroin and opiates ROS ROS ED Review of Systems ROS Unobtainable: due to mental status EXAM Physical Exam Const Vital Signs: 11/24/22 22:36 11/24/22 23:08 11/24/22 23:30 Temperature 96.2 F L Temperature Source Temporal Pulse Rate 88 84 86 Respiratory Rate 13 14 15 Blood Pressure 112/72 115/79 105/77 Blood Pressure Mean 85 91 86 Pulse Ox 94 94 99 Oxygen Delivery Method Room Air Room Air Room Air Oxygen Flow Rate (L/min) 11/25/22 00:47 11/25/22 01:38 11/25/22 02:03 Temperature Temperature Source Pulse Rate 75 85 Respiratory Rate 10 L 9 L Blood Pressure 127/87 H 121/77 H Blood Pressure Mean 100 91 Pulse Ox 100 99 99 Oxygen Delivery Method Nasal Cannula Nasal Cannula Nasal Cannula Oxygen Flow Rate (L/min) 3 3 3 Positive well nourished and well developed General Appearance ED: well developed HEENT Reports moist mucous membranes HEENT Narrative: No tongue or lip swelling. no obvious signs of pain patches on the oral mucosa Head is normocephalic and atraumatic Eyes Eyes Narrative: Pupils are pinpoint and minimally responsive to light secondary to opioid overdose Neck Neck Narrative: No bony deformity or step-off of the cervical spine Chest Wall palpation of chest normal Chest Narrative: No bony deformity or crepitance noted Resp Resp Narrative: Breath sounds are diminished throughout with brief episodes of of apneic spells. Otherwise lungs display faint wheeze and rhonchi in the bilateral lower lobes Cardio regular rate and regular rhythm Rate: other Other Details: Radial pulses are plus 2 out of 4 bilaterally are equal and symmetric GI non-distended and no masses GI Narrative: Abdomen is soft and nondistended with hypoactive bowel sounds consistent with apparent opioid use. No pulsatile mass noted Extremity normal to inspection Neuro Neuro Narrative: Patient is obtunded but will awake to loud voice or touch. He will move all extremities. There are no focal neurologic deficit. When patient awakes he will answer questions appropriately such as what his name is. He does slur speech but according to family this is his baseline. GCS of 13 Psych Psych Narrative: Patient is obtunded Skin no rashes or lesions noted Skin Narrative: No signs of infection or trauma noted MDM MDM MDM Narrative Medical decision making narrative: Patient presented to the ER with stable vitals and a history consistent with opioid overdose. His mental status was continuing to diminish however and he was falling asleep without stimulation and his breathing was becoming more shallow and diminished so he was given more Narcan. Upon receiving this his mental status and breathing improved. However this event of depressed mental status with worsening respirations reoccurred on 4 separate occasions each requiring Narcan to improve his mental status. As it has been approximately 2 hours since arrival and he required Narcan by EMS but also multiple doses in the ER and to improve his mental status and respiratory depression the decision was made to check basic laboratory studies and start him on a Narcan drip. Patient's white count is elevated at 20.3 but I do believe this is related to stress response and not secondary infectious process as chest x-ray reveals no acute infection and his exam shows no signs of infection otherwise. The patient was found to have a plastic bag filled with a white powdered substance which I believe is the synthetic opioid he used this evening. This was removed from him so he cannot try to take more while in the ER and please were called to remove the substance. At this time with the patient requiring recurrent doses of Narcan that has led to him needing a drip and his mental status still remains depressed from most likely the synthetic opioid that was found on his person he will be admitted to the hospital for continued observation. Despite the titration of the Narcan drip and having the patient in the ER for approximately 4 hours his recurrent depressed mental status as well as bouts of apnea persisted. Therefore the decision was made to intubate the patient for airway protection and to ensure there is no further bouts of apnea. This was done as documented below. Also after discussing the case with the hospitalist it was decided to perform a head CT based on his persistent obtunded status which revealed no signs of acute bleed. Therefore this time patient does not have obvious changes of acute stroke even though his white count is elevated I feel this is from stress response as there is no secondary changes to suggest infection based on his physical exam. Repeat chest x-ray did show developing opacities but as patient's had bouts of apnea and poor inspiration this is most likely atelectasis. He will need to be admitted and watched in the hospital because of the persistent depressed mental status and apnea spells most likely from his synthetic opioid overdose Patient was intubated using the glide scope. Patient was given 20 mg of etomidate and 100 mg of succinylcholine. Following this the cords were visualized with the glide scope and a 7.5 ET tube was passed. Confirmation was by bilateral breath sounds fogging of the tube and color change capnography. Patient taught procedure well without complication Lab Data Attestation: I reviewed the patient's lab results. Labs: Laboratory Results - last 24 hr 11/25/22 11/25/22 11/25/22 00:30 00:30 00:30 WBC 20.3 H RBC 4.63 Hgb 13.2 Hct 41.3 MCV 89.2 MCH 28.5 MCHC 32.0 RDW Std Deviation 46.4 H RDW Coeff of Caterina 14.4 Plt Count 279 MPV 8.8 Immature Gran % (Auto) 0.600 Neut % (Auto) 84.1 H Lymph % (Auto) 8.5 L [place] % (Auto) 5.8 Eos % (Auto) 0.8 Baso % (Auto) 0.2 Absolute Neuts (auto) 17.0 H Absolute Lymphs (auto) 1.73 Nucleated RBC % 0 Sodium 140 Potassium 4.1 Chloride 106 Carbon Dioxide 30.0 Anion Gap 4 L BUN 27 H Creatinine 0.93 Estim Creat Clear Calc 95.03 Est GFR (MDRD) Af Amer 110 Est GFR (MDRD) Non-Af 91 BUN/Creatinine Ratio 29.0 H Glucose 93 Calcium 8.7 Salicylates < 1.7 L Urine Opiates Screen Urine Methadone Screen Acetaminophen < 2.0 L Ur Barbiturates Screen Ur Phencyclidine Scrn Ur Amphetamines Screen MDMA (Ecstasy) Screen U Benzodiazepines Scrn Urine Cocaine Screen U Cannabinoids Screen Ur Drug Screen Comment Ethyl Alcohol < 3.0 11/25/22 00:30 WBC RBC Hgb Hct MCV MCH MCHC RDW Std Deviation RDW Coeff of Caterina Plt Count MPV Immature Gran % (Auto) Neut % (Auto) Lymph % (Auto) [place] % (Auto) Eos % (Auto) Baso % (Auto) Absolute Neuts (auto) Absolute Lymphs (auto) Nucleated RBC % Sodium Potassium Chloride Carbon Dioxide Anion Gap BUN Creatinine Estim Creat Clear Calc Est GFR (MDRD) Af Amer Est GFR (MDRD) Non-Af BUN/Creatinine Ratio Glucose Calcium Salicylates Urine Opiates Screen NEGATIVE Urine Methadone Screen NEGATIVE Acetaminophen Ur Barbiturates Screen NEGATIVE Ur Phencyclidine Scrn NEGATIVE Ur Amphetamines Screen POSITIVE H MDMA (Ecstasy) Screen NEGATIVE U Benzodiazepines Scrn NEGATIVE Urine Cocaine Screen NEGATIVE U Cannabinoids Screen POSITIVE H Ur Drug Screen Comment Ethyl Alcohol Radiography Diagnostic Testing: Clinical Impression(s) from Imaging Studies Chest X-Ray 11/25/22 00:25 IMPRESSION: No acute findings. 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 Electronically Signed: Dave Holcomb MD at 0:48 EST Reading Location ID and State: [address] [place] [address] Tel , Service support , Brain CT 11/25/22 02:17 IMPRESSION: No acute intracranial findings. Electronically Signed: Dave Holcomb MD at 3:44 EST Reading Location ID and State: [address] [place] [address] Tel , Service support , 1 view chest x-ray as interpreted by the emergency medicine physician reveals no acute infiltrate pneumothorax or pleural effusion Repeat chest x-ray status post intubation as interpreted by the emergency medicine physician reveals ET tube in satisfactory position with hazy opacities in the bilateral lower lobes most consistent with atelectasis. Critical Care Time Critical Care Time: Yes Critical care time (excluding procedures): Discussing w/Patient &/or Family/Teacher Physically Impaired, Discussing w/Consultants and - (Critical care time of 33 minutes) Discharge Plan Dx/Rx/DC Orders Clinical Impression: Opioid overdose, Respiratory acidosis, Leukocytosis, Acute respiratory failure Disposition Disposition: Acute Care Hospital [facility]
[2022-11-24] MEDS: Naloxone 2 MG/2 ML Syringe 1 MG IV ×2 (22:50→23:28)
[2022-11-24] MEDS: Ondansetron 4 MG/2 ML Vial IV (23:07)
[2022-11-24 23:08] VITALS: BP 115/79; PULSE 84; RESP 14; O2SAT 94
[2022-11-24 23:30] VITALS: BP 105/77; PULSE 86; RESP 15; O2SAT 99
[2022-11-25] VITALS (37 sets, daily range): BP systolic 90–141; BP diastolic 60–96; PULSE 68–101; RESP 9–26; TEMP 36.6–37.7; O2SAT 89–100; BMI 19.8
[2022-11-25] MEDS: Naloxone 2 MG/2 ML Syringe 1 MG IV (00:22)
--- NOTE | 2022-11-25 00:25 | RAD_ITS ---
STUDY: X-RAY CHEST REASON FOR EXAM: Male, 52 years old. Short of breath. TECHNIQUE: AP COMPARISON: 07/12/2022 CXR FINDINGS: No evidence of pneumonia, pulmonary edema, pneumothorax or pleural effusion. Mildly lucent and hyperinflated lungs. Calcified granuloma left lateral mid/upper lung. Cardiac silhouette, hilar and mediastinal contours with no acute findings. Atherosclerosis of the thoracic aorta. Degenerative osseous changes with no acute osseous abnormality. RAD/Chest 1 View (Portable) IMPRESSION: No acute findings. 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 Electronically Signed: Dave Holcomb MD at 0:48 EST Reading Location ID and State: [facility] / [place] Tel , Service support ,
[2022-11-25] MEDS: 0.9% Normal Saline 1,000 ML 999 ML IV (00:30)
[2022-11-25 00:35] LABS: Absolute Lymphocyte Count 1.73 X10^3/uL (0.83-4.51); Basophil# 0.04 X10^3/uL; Basophil% 0.2 % (0-1); Eosinophil# 0.17 X10^3/uL; Eosinophils% 0.8 % (0-5); Hematocrit 41.3 % (40-54); Hemoglobin 13.2 g/dL (13.0-16.5); Lymphocyte # 1.73 X10^3/ul (0.83-4.51); Lymphocyte % 8.5 % (19-41); Mean Corpuscular Hgb 28.5 pg (27.0-32.0); Mean Corpuscular Volume 89.2 fL (80-94); Mean Platelet Vol. 8.8 fl (6.2-12.0); Monocyte# 1.18 X10^3/uL; Monocyte% 5.8 % (0-10); NRBC Flagged by Analyzer 0 % (0-5); Neutrophil # 17.04 X10^3/uL (2.7-7.7); Neutrophil % 84.1 % (47-70); Platelet Count 279 K/mm3 (150-450); RBC Distribution Width CV 14.4 % (11.6-14.6); RBC Distribution Width SD 46.4 fl (35.1-43.9); Red Blood Count 4.63 M/mm3 (4.6-6.2); White Blood Count 20.3 K/mm3 (4.4-11.0)
[2022-11-25 00:50] LABS: Anion Gap 4 (5-15); BUN 27 mg/dL (7-18); Calcium,Total 8.7 mg/dL (8.5-10.1); Chloride 106 mmol/L (98-107); Creatinine, Serum 0.93 mg/dL (0.70-1.30); EST Glomerular Filtration Rate 91 mL/min (>60); Est Glom Filt Rate - Afr Amer 110 mL/min (>60); Estimated Creatinine Clearance 95.03 ml/min; Glucose 93 mg/dL (74-106); Potassium 4.1 mmol/L (3.5-5.1); Sodium Level 140 mmol/L (136-145)
[2022-11-25 00:53] LABS: Amphetamine Urine VISTA POSITIVE (<1000 ng/mL); Barbiturate Urine VISTA NEGATIVE (< 200 ng/mL); Benzodiazepine Urine VISTA NEGATIVE (< 200 ng/mL); Cocaine Urine VISTA NEGATIVE (< 300 ng/mL); Ecstacy Urine VISTA NEGATIVE (< 500 ng/mL); Methadone Urine VISTA NEGATIVE (< 300 ng/mL); PCP Urine VISTA NEGATIVE (< 25 ng/mL); THC Urine VISTA POSITIVE (< 50 ng/mL); Vista UDS pH Range 5
[2022-11-25 00:58] LABS: Acetaminophen (Tylenol) Level < 2.0 ug/mL (10.0-30.0); Alcohol, Blood (Medical)-Serum < 3.0 mg/dL; Salicylate < 1.7 mg/dL (2.8-20.0)
--- NOTE | 2022-11-25 02:17 | CT_ITS ---
STUDY: CT BRAIN WITHOUT CONTRAST REASON FOR EXAM: Male, 52 years old. AMS TECHNIQUE: Transaxial CT imaging of the brain was performed without administration of intravenous contrast material. Individualized dose optimization techniques were used for this CT. COMPARISON: 11/25/2015 CT brain. FINDINGS: No evidence of intracranial hemorrhage, mass, acute infarct, or hydrocephalus. Atherosclerosis of the intracranial arteries. No acute osseous abnormality. Visualized paranasal sinuses and mastoid air cells patent. Visualized extracranial soft tissues unremarkable. ASPECTS 08/01 CT/Brain/Head without Contrast IMPRESSION: No acute intracranial findings. Electronically Signed: Dave Holcomb MD at 3:44 EST Reading Location ID and State: [facility] / [place] Tel , Service support ,
--- NOTE | 2022-11-25 02:23 | PCM.HP.STD ---
HPI - General General Date of Admission: 11/25/22 Date of Service: 11/25/22 Chief Complaint: Altered mental status - 1 day HPI Narrative RONNIE PETTIT, is a 52 M who presents with the above. Patient has past medical history of polysubstance use, daily opioid use who was found unresponsive this evening. Patient lives with his mother. He was said to have been looking for trash bag in the kitchen when his mother found him unresponsive lying on his side. The EMS were called. The police found a bag of white powder on him. Patient was said to be apneic and unresponsive. He did respond with multiple doses of Narcan but lasts for a very short while. In the emergency room, he would awaken after being given bolus doses Narcan and then go back into unresponsiveness. He was transitioned to a Narcan drip after a couple of doses of IV Narcan. Patient remained intermittently unresponsive after almost 4 hours of treatment with Narcan drip. Patient was noted several times to be severely apneic, requiring sternal rubs every few minutes to keep him awake. ABGs done showed acute respiratory acidosis, with pH of 7.26, PCO2 63.4, PO2 113. He was intubated over concerns of inability to maintain his airway. Initially in the emergency room, his BP was 112/72, heart rate 88, respiratory rate 18, temperature 96.2 F, oxygen sat was 94% on 3 L of oxygen. His WBC count is 20.3, hemoglobin 13.2, platelet count 279. BMP is unremarkable except for BUn 27, Cr 0.93. Urine tox is positive for amphetamines and cannabinoids [facility] Medical History unable to obtain no medical history Home Medications cephalexin 500 mg capsule 500 mg PO Q6 #40 caps 01/28/22 [Rx Last Taken Unknown] hydrocortisone 2.5 % topical ointment 1 applic topical BID 14 days #28.35 grams 01/28/22 [Rx Last Taken Unknown] Allergy/AdvReac Type Severity Reaction Status Date / Time No Known Allergies Allergy Verified 08/10/22 10:15 Family History (Updated 11/25/22 @ 03:[address] Ana Maria Vazquez MD) Mother Diabetes Heart disease Surgical History no surgical history no surgical history Social History (Updated 11/25/22 @ 03:[address] Ana Maria Vazquez MD) household members: family and none Smoking Status: Current every day smoker tobacco type: cigarettes alcohol intake: current alcohol intake frequency: holidays/special occasions only substance use type: marijuana, heroin and opiates ROS Review of Systems ROS Unobtainable: due to encephalopathy and due to mental condition Vital Signs Vital Signs Vital Signs: 11/24/22 22:36 11/24/22 23:08 11/24/22 23:30 Temperature 96.2 F L Temperature Source Temporal Pulse Rate 88 84 86 Respiratory Rate 13 14 15 Blood Pressure 112/72 115/79 105/77 Blood Pressure Mean 85 91 86 Pulse Ox 94 94 99 Oxygen Delivery Method Room Air Room Air Room Air Oxygen Flow Rate (L/min) 11/25/22 00:47 11/25/22 01:38 11/25/22 02:03 Temperature Temperature Source Pulse Rate 75 85 Respiratory Rate 10 L 9 L Blood Pressure 127/87 H 121/77 H Blood Pressure Mean 100 91 Pulse Ox 100 99 99 Oxygen Delivery Method Nasal Cannula Nasal Cannula Nasal Cannula Oxygen Flow Rate (L/min) 3 3 3 Weight Weight: 71.9 kg Body Mass Index (BMI) 23.3 Physical Exam Narrative Physical exam: General: Alert, lethargic, will awaken to had sternal rub for a few seconds and go back to sleep HEENT: Atraumatic, pinpoint pupils Oral: Moist Mucosa Neck: Supple Lungs: Diminished to auscultation Cardiovascular: HS I+II, regular, no murmurs Abdomen: Bowel Sounds Present, Soft, Non Tender Extremities: No edema Skin: No rashes, No breakdown Neurological: Grossly intact Psych/Mental Status: Appropriate Results Lab / Micro Data Result Diagrams: 11/25/22 00:30 11/25/22 00:30 Labs: Laboratory Results - last 24 hr 11/25/22 00:30: WBC 20.3 H, RBC 4.63, Hgb 13.2, Hct 41.3, MCV 89.2, MCH 28.5, MCHC 32.0, RDW Std Deviation 46.4 H, RDW Coeff of Caterina 14.4, Plt Count 279, MPV 8.8, Immature Gran % (Auto) 0.600, Neut % (Auto) 84.1 H, Lymph % (Auto) 8.5 L, [place] % (Auto) 5.8, Eos % (Auto) 0.8, Baso % (Auto) 0.2, Absolute Neuts (auto) 17.0 H, Absolute Lymphs (auto) 1.73, Nucleated RBC % 0 11/25/22 00:30: Sodium 140, Potassium 4.1, Chloride 106, Carbon Dioxide 30.0, Anion Gap 4 L, BUN 27 H, Creatinine 0.93, Estim Creat Clear Calc 95.03, Est GFR (MDRD) Af Amer 110, Est GFR (MDRD) Non-Af 91, BUN/Creatinine Ratio 29.0 H, Glucose 93, Calcium 8.7 11/25/22 00:30: Salicylates < 1.7 L, Acetaminophen < 2.0 L, Ethyl Alcohol < 3.0 11/25/22 00:30: Urine Opiates Screen NEGATIVE, Urine Methadone Screen NEGATIVE, Ur Barbiturates Screen NEGATIVE, Ur Phencyclidine Scrn NEGATIVE, Ur Amphetamines Screen POSITIVE H, MDMA (Ecstasy) Screen NEGATIVE, U Benzodiazepines Scrn NEGATIVE, Urine Cocaine Screen NEGATIVE, U Cannabinoids Screen POSITIVE H, Ur Drug Screen Comment Radiology Impression Chest X-Ray 11/25/22 00:25 IMPRESSION: No acute findings. 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 Electronically Signed: Dave Holcomb MD at 0:48 EST Reading Location ID and State: [address] [place] [address] Tel , Service support , Assessment & Plan Assessment/Plan (1) Opioid overdose: (2) Respiratory acidosis: (3) Altered mental status: PLAN: Plan 1. Altered mental status secondary to acute toxic encephalopathy/opioid overdose/hypercapnic respiratory failure Patient intubated to protect airway, s/p intubation now. CT of the brain is unremarkable We will admit to ICU, continue to monitor the mechanical ventilator Patient has not required any use of IV fentanyl or propofol drips Will monitor for use of the above Repeat ABG 2. Acute hypercapnic respiratory failure secondary to 1, status post intubation ABG showed pH of 7.29, PCO2 63 Patient with repeated apneic episodes, status post intubation Management as above 3. Polysubstance use, urine tox positive for amphetamine, cannabinoids Patient with suspected long acting synthetic opioid not easily detected on urine tox 4. DVT PPx- Lovenox SC Total time spent: 75 minutes of which a greater part was spent in reviewing patient's chart, laboratory investigations, imaging, talking to his ex- and daughter at the bedside, physical examining patient, discussing with emergency room physician. Charges/Coding Visit Charges Inpatient E&M: 11072 Init Hosp L3
[2022-11-25 02:36] LABS: Allen Test Positive; Base Excess 1 mmol/L (-2 to +2); Bicarbonate 28.2 mmol/L (22-26); Blood Gas Specimen Type ART; O2 Delivery Device Cannula; PO2 113 mmHG (75-100); SITE L Radial; SO2 97 % (95-99); Total Carbon Dioxide 30 mmol/L; pCO2 63.4 mmHg (35-45); pH 7.26 (7.35-7.45)
[2022-11-25] MEDS: Succinylcholine Chloride 200 MG/10 ML SYRINGE 100 MG IV (03:07)
[2022-11-25] MEDS: Etomidate 20 MG/10 ML Vial IV (03:07)
--- NOTE | 2022-11-25 03:15 | RAD_ITS ---
INDICATION: s/p intubation EXAMINATION/TECHNIQUE: X-RAY - XR Chest 1 View AP portable. 3:20 AM. COMPARISON: 12:29 AM. FINDINGS: LINES/DEVICES: The endotracheal tube is 4 cm above the august. Tip of the nasogastric tube is in the proximal stomach with sidehole at the level of the GE junction. LUNGS: Patchy opacities in the lung bases, increased compared to the prior. No pneumothorax. MEDIASTINUM: Unremarkable. CARDIAC SILHOUETTE: Not enlarged. BONES AND SOFT TISSUES: No acute abnormalities. RAD/Chest 1 View (Portable) IMPRESSION: 1. Satisfactory ET tube position. 2. NG tube as described. 3. Increased basilar opacities may be atelectasis or developing infiltrates. Electronically Signed: Janeth James MD at 3:56 EST ,
[2022-11-25] MEDS: 0.9% Normal Saline 1,000 ML 75 ML IV ×2 (03:57→16:48)
[2022-11-25 04:43] LABS: Absolute Lymphocyte Count 1.06 X10^3/uL (0.83-4.51); Absolute Neutrophil Count 7.7 X10^3/uL (2.0-7.7); Basophil# 0.02 X10^3/uL; Basophil% 0.2 % (0-1); Eosinophil# 0.03 X10^3/uL; Eosinophils% 0.3 % (0-5); Hematocrit 39.2 % (40-54); Hemoglobin 12.6 g/dL (13.0-16.5); Lymphocyte # 1.06 X10^3/ul (0.83-4.51); Lymphocyte % 11.4 % (19-41); Mean Corp Hgb Conc 32.1 g/dL (32-36); Mean Corpuscular Hgb 28.5 pg (27.0-32.0); Mean Corpuscular Volume 88.7 fL (80-94); Mean Platelet Vol. 9.2 fl (6.2-12.0); Monocyte# 0.38 X10^3/uL; Monocyte% 4.1 % (0-10); NRBC Flagged by Analyzer 0 % (0-5); Neutrophil # 7.74 X10^3/uL (2.7-7.7); Neutrophil % 83.5 % (47-70); Platelet Count 240 K/mm3 (150-450); RBC Distribution Width CV 14.4 % (11.6-14.6); RBC Distribution Width SD 46.8 fl (35.1-43.9); Red Blood Count 4.42 M/mm3 (4.6-6.2); White Blood Count 9.3 K/mm3 (4.4-11.0)
[2022-11-25 05:01] LABS: ALB/GLOB Ratio 0.8 RATIO (0.9-2.4); AST(SGOT) 24 U/L (15-37); Alanine Aminotransfer ALT/SGPT 23 U/L (16-61); Albumin, Serum 3.2 g/dL (3.2-5.0); Alkaline Phosphatase 47 U/L (45-117); Anion Gap 6 (5-15); BUN 20 mg/dL (7-18); BUN/Creat Ratio 30.2 RATIO (10-20); Bilirubin, Direct 0.24 mg/dL (0.00-0.30); Calcium,Total 8.3 mg/dL (8.5-10.1); Chloride 104 mmol/L (98-107); Creatinine, Serum 0.66 mg/dL (0.70-1.30); EST Glomerular Filtration Rate 135 mL/min (>60); Est Glom Filt Rate - Afr Amer 163 mL/min (>60); Estimated Creatinine Clearance 118.94 ml/min; Globulin 3.8 g/dL (2.2-4.2); Glucose 93 mg/dL (74-106); Potassium 4.5 mmol/L (3.5-5.1); Sodium Level 137 mmol/L (136-145)
[2022-11-25 07:35] LABS: Allen Test Positive; Base Excess 2 mmol/L (-2 to +2); Bicarbonate 26.4 mmol/L (22-26); Blood Gas Specimen Type ART; FI02 30; Mode AC; O2 Delivery Device Adult Vent; PEEP 5; PO2 106 mmHG (75-100); RR 14; SITE R Radial; SO2 98 % (95-99); Total Carbon Dioxide 28 mmol/L; Vt 450; pCO2 41.7 mmHg (35-45); pH 7.41 (7.35-7.45)
--- NOTE | 2022-11-25 08:26 | EX.PCM.CONCC ---
Assessment & Plan Assessment/Plan (1) Acute respiratory failure: (2) Altered mental status: (3) Opioid overdose: PLAN: Plan RECOMMENDATIONS: 1. Continue mechanical ventilation pending patient response 2. Monitor cranial nerves while holding sedation 3. Monitor for possible alcohol/opiate withdrawal 4. Okay to start tube feeds 5. Defer to hospitalist on EEG. MRI likely not indicated acutely 6. Monitor for refeeding syndrome 7. Initiate as needed bronchodilators IMPRESSIONS: 1. Acute hypercarbic respiratory failure secondary to presumed drug overdose Patient appears to have an overdose syndrome with opiates. Patient failed Narcan rescue and is currently mechanically ventilated. ABG shows adequate oxygenation and ventilation on the current settings. Patient does have some hyperinflation with baseline smoking, so will place on as needed DuoNeb therapy. Okay to initiate tube feeds from my perspective. Patient will need spontaneous breathing and awakening trials per protocol. Hold sedation until patient is more responsive. 2. Toxic encephalopathy Patient initially with elevated carbon dioxide, likely secondary to drug overdose. Cannot exclude an element of hypoxic encephalopathy. We will continue to monitor clinically. Patient does not appear to have a focal neurologic exam at this time, so stroke is unlikely. Seizures would be a consideration, but no clinical seizures are noted. Defer to hospitalist on whether EEG would be necessary at this time. 3. Polysubstance abuse Patient reportedly has had issues with cannabinoids, methamphetamines and alcohol in the past. We will need to monitor for refeeding syndrome as patient appears to have a poor nutritional status. As needed Ativan likely sufficient until patient is extubated, then CIWA would be indicated. TIME: 35 minutes critical care time spent addressing patient's acute hypercarbic respiratory failure, toxic encephalopathy, review of all data and collaboration with care team. HPI Consult Data Date of Consult: 11/25/22 HPI Narrative Reason for Consultation: Respiratory failure HPI Narrative: RONNIE PETTIT is a 52 M, with past medical history listed below, who presents to [facility] on 11/24/[facility]22 secondary to a probable overdose. Patient's mother reportedly found him unresponsive. Patient reportedly was talking with his mother and then became unresponsive. On EMS arrival, patient was found unresponsive, but did have a respiratory rate. Patient was given intravenous and intranasal Narcan with some improvement in mental status but was still mildly obtunded, so was transported to the ER for further evaluation. In the ER, patient was afebrile, normotensive and saturating well on room air. Patient was placed on 3 L nasal cannula. Laboratory work-up showed a white blood cell count of 20.3, hemoglobin of 13.2 and platelets of 279. Chemistries were significant for a bicarbonate of 30, but normal renal function and glucose. Salicylate, amphetamine and alcohol levels were all negative. Patient did test positive for cannabinoids and amphetamines. Chest x-ray showed mild hyperinflation and CT of the head showed no acute injury. Throughout the hospital/ER course, patient received significant amounts of Narcan, initially as a bolus, but ultimately required a drip. Patient was requiring significant stimulation despite continued Narcan infusion. Given continued neuro depression, patient was intubated in the ER and transferred to the intensive care unit. Since being in the intensive care unit, patient has not required any sedation. Patient will attempt to open his eyes with vigorous stimulation. Patient is not able to provide any additional history at this time. 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 There is some speculation the patient may also be an avid drinker, but this cannot be confirmed. [facility] Medical History unable to obtain unable to obtain Home Medications cephalexin 500 mg capsule 500 mg PO Q6 #40 caps 01/28/22 [Rx Last Taken Unknown] hydrocortisone 2.5 % topical ointment 1 applic topical BID 14 days #28.35 grams 01/28/22 [Rx Last Taken Unknown] Allergy/AdvReac Type Severity Reaction Status Date / Time No Known Allergies Allergy Verified 08/10/22 10:15 Family History Mother Diabetes Heart disease Family History unable to obtain unable to obtain Surgical History unable to obtain unable to obtain Social History household members: family and none Smoking Status: Current every day smoker tobacco type: cigarettes alcohol intake: current alcohol intake frequency: holidays/special occasions only substance use type: marijuana, heroin and opiates ROS Review of Systems ROS Unobtainable: due to mental status Physical Exam Const Constitutional Narrative: Prominent frontal ridge. Good vent synchrony. General Appearance: patient mechanically ventilated Orientation / Consciousness: obtunded HEENT normocephalic and head/scalp atraumatic Eyes conjunctivae normal Eyes Narrative: Pupils minimally responsive Neck supple and no JVD Resp Auscultation: wheezes expiratory wheezes (End) and diminished lung sounds; Negative for rales or rhonchi Cardio regular rate, regular rhythm, S1 normal heart sound, S2 normal heart sound, no murmurs, no rub and no gallops GI normal to inspection, nondistended, normoactive bowel sounds Extremity no clubbing, cyanosis or edema Neuro Neuro Narrative: Symmetric response to aggressive stimulation. Positive cough and gag. Pupils slow to respond Psych Mood & Affect: flat affect Medical Records Data Attestation: I reviewed the patient's medical records Lab / Micro Data Attestation: I reviewed the patient's lab results. Result Diagrams: 11/25/22 04:25 11/25/22 04:25 Labs: Laboratory Results - last 24 hr 11/25/22 00:30: WBC 20.3 H, RBC 4.63, Hgb 13.2, Hct 41.3, MCV 89.2, MCH 28.5, MCHC 32.0, RDW Std Deviation 46.4 H, RDW Coeff of Caterina 14.4, Plt Count 279, MPV 8.8, Immature Gran % (Auto) 0.600, Neut % (Auto) 84.1 H, Lymph % (Auto) 8.5 L, [place] % (Auto) 5.8, Eos % (Auto) 0.8, Baso % (Auto) 0.2, Absolute Neuts (auto) 17.0 H, Absolute Lymphs (auto) 1.73, Nucleated RBC % 0 11/25/22 00:30: Sodium 140, Potassium 4.1, Chloride 106, Carbon Dioxide 30.0, Anion Gap 4 L, BUN 27 H, Creatinine 0.93, Estim Creat Clear Calc 95.03, Est GFR (MDRD) Af Amer 110, Est GFR (MDRD) Non-Af 91, BUN/Creatinine Ratio 29.0 H, Glucose 93, Calcium 8.7 11/25/22 00:30: Salicylates < 1.7 L, Acetaminophen < 2.0 L, Ethyl Alcohol < 3.0 11/25/22 00:30: Urine Opiates Screen NEGATIVE, Urine Methadone Screen NEGATIVE, Ur Barbiturates Screen NEGATIVE, Ur Phencyclidine Scrn NEGATIVE, Ur Amphetamines Screen POSITIVE H, MDMA (Ecstasy) Screen NEGATIVE, U Benzodiazepines Scrn NEGATIVE, Urine Cocaine Screen NEGATIVE, U Cannabinoids Screen POSITIVE H, Ur Drug Screen Comment 11/25/22 04:25: WBC 9.3, RBC 4.42 L, Hgb 12.6 L, Hct 39.2 L, MCV 88.7, MCH 28.5, MCHC 32.1, RDW Std Deviation 46.8 H, RDW Coeff of Caterina 14.4, Plt Count 240, MPV 9.2, Immature Gran % (Auto) 0.500, Neut % (Auto) 83.5 H, Lymph % (Auto) 11.4 L, [place] % (Auto) 4.1, Eos % (Auto) 0.3, Baso % (Auto) 0.2, Absolute Neuts (auto) 7.7, Absolute Lymphs (auto) 1.06, Nucleated RBC % 0 11/25/22 04:25: Sodium 137, Potassium 4.5, Chloride 104, Carbon Dioxide 27.0, Anion Gap 6, BUN 20 H, Creatinine 0.66 L, Estim Creat Clear Calc 118.94, Est GFR (MDRD) Af Amer 163, Est GFR (MDRD) Non-Af 135, BUN/Creatinine Ratio 30.2 H, Glucose 93, Calcium 8.3 L, Total Bilirubin 1.00, Direct Bilirubin 0.24, AST 24, ALT 23, Alkaline Phosphatase 47, Total Protein 7.0, Albumin 3.2, Globulin 3.8, Albumin/Globulin Ratio 0.8 L 11/25/22 04:25: Total Bilirubin Cancelled, Direct Bilirubin Cancelled, AST Cancelled, ALT Cancelled, Alkaline Phosphatase Cancelled, Total Protein Cancelled, Albumin Cancelled, Globulin Cancelled ABG Data ABG results: ABG 11/25/22 11/25/22 02:29 07:31 Specimen Type ART ART Sample Site L Radial R Radial pH 7.26 L 7.41 Bicarbonate Actual 28.2 H 26.4 H Total CO2 30 28 Base Excess 1 2 O2 Saturation 97 98 O2 % 30 ABG pCO2 63.4 H 41.7 ABG pO2 113 H 106 H Heber Test Positive Positive Respiration Rate 14 O2 Delivery Device Cannula Adult Vent Liter Flow 3.0 Vent Mode AC Tidal Volume 450 POC PEEP 5 Attestation: I personally reviewed and interpreted this ABG as follows: (Appropriately addressed acute on chronic respiratory with metabolic compensation) Radiology Impression Chest X-Ray 11/25/22 00:25 IMPRESSION: No acute findings. 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 Electronically Signed: Dave Holcomb MD at 0:48 EST Reading Location ID and State: [facility] / [place] Tel , Service support , Brain CT 11/25/22 02:17 IMPRESSION: No acute intracranial findings. Electronically Signed: Dave Holcomb MD at 3:44 EST Reading Location ID and State: [facility] / [place] Tel , Service support , Chest X-Ray 11/25/22 03:15 IMPRESSION: 1. Satisfactory ET tube position. 2. NG tube as described. 3. Increased basilar opacities may be atelectasis or developing infiltrates. Electronically Signed: Janteh James MD at 3:56 EST Reading Location ID and State: [facility] / [place] Tel , Service support , Charges/Coding Procedures Hospitalists Procedures: [id number] Critial Care 1st Hr
[2022-11-25] MEDS: Enoxaparin 40 MG/0.4 ML Syringe SC (08:52)
[2022-11-25] MEDS: Chlorhexidine 15 ML PO ×2 (08:53→20:18)
[2022-11-25] MEDS: Vital AF 1.2 Cal Liquid 1,000 ML 15 ML GT (11:00)
--- NOTE | 2022-11-25 13:41 | CASEMGMT ---
Social Work SW participated in ICU rounds this morning. Pt's exwife Mary and sister Rachel present. SW spoke w/them this afternoon briefly. Both state that pt needs help and nobody seems to want to help him. 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 They are not aware of his psych diagnoses, did state that they have told that pt lives in a fantasy world. Pt's sister states she called [facility] she thinks it was, to get help, and they were not able to help pt. SW offered support to Mary and Rachel. We spoke about POA. There are 5 biological children, 2 over 18. James is 18 and Josi is 19. SW explained that without POA papers, the two children would need to make decisions together. SW explained they can speak to anybody else for help with this however. Mary states that James is very angry w/pt. Mary asked about POA papers. SW explained that it needs to come from pt, and once he is off the vent and if he is alert and oriented, we can talk to him about completing the papers. SW did give them blank forms for pt with the dept number on it, in the event the papers cannot be completed while pt is here. SW also gave them information for [facility] number, if needed in the future. SW explained will follow up w/pt once he is extubated and able to have a conversation, to see if pt is willing to accept any help/referrals. ANDRES will continue to follow. VERONICA Frost
[2022-11-26] VITALS (36 sets, daily range): BP systolic 96–136; BP diastolic 63–85; PULSE 57–100; RESP 14–21; TEMP 37.6–38.1; O2SAT 92–99
[2022-11-26 03:30] LABS: Absolute Lymphocyte Count 2.01 X10^3/uL (0.83-4.51); Absolute Neutrophil Count 6.4 X10^3/uL (2.0-7.7); Basophil# 0.03 X10^3/uL; Basophil% 0.3 % (0-1); Eosinophil# 0.26 X10^3/uL; Eosinophils% 2.7 % (0-5); Hematocrit 38.7 % (40-54); Hemoglobin 12.2 g/dL (13.0-16.5); Lymphocyte # 2.01 X10^3/ul (0.83-4.51); Lymphocyte % 21.2 % (19-41); Mean Corp Hgb Conc 31.5 g/dL (32-36); Mean Corpuscular Hgb 28.4 pg (27.0-32.0); Mean Corpuscular Volume 90.2 fL (80-94); Mean Platelet Vol. 9.1 fl (6.2-12.0); Monocyte# 0.72 X10^3/uL; Monocyte% 7.6 % (0-10); NRBC Flagged by Analyzer 0 % (0-5); Neutrophil # 6.43 X10^3/uL (2.7-7.7); Neutrophil % 67.9 % (47-70); Platelet Count 231 K/mm3 (150-450); RBC Distribution Width CV 14.7 % (11.6-14.6); RBC Distribution Width SD 48.4 fl (35.1-43.9); Red Blood Count 4.29 M/mm3 (4.6-6.2); White Blood Count 9.5 K/mm3 (4.4-11.0)
[2022-11-26 03:51] LABS: Anion Gap 7 (5-15); BUN 18 mg/dL (7-18); BUN/Creat Ratio 24.9 RATIO (10-20); Calcium,Total 8.4 mg/dL (8.5-10.1); Chloride 104 mmol/L (98-107); Creatinine, Serum 0.72 mg/dL (0.70-1.30); EST Glomerular Filtration Rate 122 mL/min (>60); Est Glom Filt Rate - Afr Amer 148 mL/min (>60); Estimated Creatinine Clearance 109.03 ml/min; Glucose 96 mg/dL (74-106); Potassium 3.9 mmol/L (3.5-5.1); Sodium Level 136 mmol/L (136-145)
[2022-11-26] MEDS: CHLORHEXIDINE GLUC 2% CLOTH 1 EACH TOWELETTE TOPICAL (04:59)
[2022-11-26] MEDS: 0.9% Normal Saline 1,000 ML 75 ML IV ×2 (04:59→17:12)
--- NOTE | 2022-11-26 06:42 | PCM.PN.INT ---
Assessment & Plan Assessment/Plan (1) Acute respiratory failure: (2) Altered mental status: (3) Opioid overdose: PLAN: Plan RECOMMENDATIONS: 1. Continue mechanical ventilation pending patient response 2. Continue to hold sedation if possible 3. Monitor for possible alcohol/opiate withdrawal 4. Okay to continue tube feeds 5. Clarify with family on potential overdose agents 6. Continue as needed bronchodilators IMPRESSIONS: 1. Acute hypercarbic respiratory failure secondary to presumed drug overdose Patient appears to have an overdose syndrome with opiates. Patient failed Narcan rescue and is currently mechanically ventilated. ABG shows adequate oxygenation and ventilation on the current settings. Patient does have some hyperinflation with baseline smoking, so will continue on as needed DuoNeb therapy. Okay to advance tube feeds from my perspective. Patient will need spontaneous breathing and awakening trials per protocol. Continue to hold sedation until patient is more responsive. We will need to discuss with the family on whether patient has access to long-acting opiate such as methadone or OxyContin as these can persist for over 24 hours in an overdose state. Patient does not appear to have significant renal dysfunction. We will add on LFTs and right upper quadrant ultrasound to evaluate for cirrhosis. 2. Toxic encephalopathy Improving. Patient initially with elevated carbon dioxide, likely secondary to drug overdose. Cannot exclude an element of hypoxic encephalopathy. We will continue to monitor clinically. Patient does not appear to have a focal neurologic exam at this time, so stroke is unlikely. Seizures would be a consideration, but no clinical seizures are noted. Defer to hospitalist on whether EEG would be necessary at this time. 3. Polysubstance abuse Patient reportedly has had issues with cannabinoids, methamphetamines and alcohol in the past. We will need to monitor for refeeding syndrome as patient appears to have a poor nutritional status. As needed Ativan likely sufficient until patient is extubated, then CIWA would be indicated. TIME: 32 minutes critical care time spent addressing patient's acute hypercarbic respiratory failure, toxic encephalopathy, review of all data and collaboration with care team. Subjective Subjective Patient did okay overnight. Nursing has reported patient has become progressively more responsive. However, this morning patient had apnea on spontaneous breathing trial. No significant endotracheal secretions have been noted. Patient's tube feeds were at 30 cc/h prior to the spontaneous breathing trial. Objective Data Objective Data Vital Signs: Vital Signs Temp Pulse Resp BP Pulse Ox O2 Del Method O2 Flow Rate 37.7 C H 72 16 102/66 96 Mechanical Ventilator 2 11/26/22 06:00 11/26/22 06:00 11/26/22 06:00 11/26/22 06:00 11/26/22 06:00 11/26/22 06:00 11/25/22 02:35 FiO2 25 11/26/22 06:00 Oxygen Flow Rate (L/min) 2 Oxygen Delivery Method Mechanical Ventilator Weight: 62.3 kg Body Mass Index (BMI) 19.8 Intake & Output: Intake and Output for Last 24 Hours 11/24/22 11/25/22 11/26/22 23:59 23:59 23:59 Intake Total 2620.16 / 2620.16 1268.25 / 1268.25 Output Total 500 / 900 400 / 400 Balance 2120.16 / 1720.16 868.25 / 868.25 Lab / Micro Data Attestation: I reviewed the patient's lab results. Result Diagrams: 11/26/22 03:20 11/26/22 03:20 Labs: Laboratory Results - last 24 hr 11/26/22 03:20: WBC 9.5, RBC 4.29 L, Hgb 12.2 L, Hct 38.7 L, MCV 90.2, MCH 28.4, MCHC 31.5 L, RDW Std Deviation 48.4 H, RDW Coeff of Caterina 14.7 H, Plt Count 231, MPV 9.1, Immature Gran % (Auto) 0.300, Neut % (Auto) 67.9, Lymph % (Auto) 21.2, [place] % (Auto) 7.6, Eos % (Auto) 2.7, Baso % (Auto) 0.3, Absolute Neuts (auto) 6.4, Absolute Lymphs (auto) 2.01, Nucleated RBC % 0 11/26/22 03:20: Sodium 136, Potassium 3.9, Chloride 104, Carbon Dioxide 25.0, Anion Gap 7, BUN 18, Creatinine 0.72, Estim Creat Clear Calc 109.03, Est GFR (MDRD) Af Amer 148, Est GFR (MDRD) Non-Af 122, BUN/Creatinine Ratio 24.9 H, Glucose 96, Calcium 8.4 L Micro: Microbiology 11/25/22 03:27 Sputum, Induced/Lukens Gram Stain - Final ABG Data ABG results: ABG 11/25/22 07:31 Specimen Type ART Sample Site R Radial pH 7.41 Bicarbonate Actual 26.4 H Total CO2 28 Base Excess 2 O2 Saturation 98 O2 % 30 ABG pCO2 41.7 ABG pO2 106 H Heber Test Positive Respiration Rate 14 O2 Delivery Device Adult Vent Vent Mode AC Tidal Volume 450 POC PEEP 5 Physical Exam Const Constitutional Narrative: Prominent frontal ridge. Good vent synchrony. Following some commands today. Not currently on sedation. General Appearance: lethargic and patient mechanically ventilated HEENT normocephalic and head/scalp atraumatic Eyes PERRL, EOMs intact bilaterally and conjunctivae normal Neck supple and no JVD Resp Auscultation: diminished lung sounds; Negative for rales, rhonchi or wheezes Cardio regular rate, regular rhythm, S1 normal heart sound, S2 normal heart sound, no murmurs, no rub and no gallops GI normal to inspection, nondistended, normoactive bowel sounds Extremity no clubbing, cyanosis or edema Neuro CN's II-XII intact bilaterally, moves all extremities and no focal motor deficits Psych Mood & Affect: flat affect Charges/Coding Procedures Hospitalists Procedures: [id number] Critial Care 1st Hr
--- NOTE | 2022-11-26 07:23 | US_ITS ---
EXAM: US ABDOMEN LIMITED, RIGHT UPPER QUADRANT CLINICAL INDICATION: possible Cirrhosis TECHNIQUE: Real-time ultrasound of the right upper quadrant with image documentation. This report was created using [employer] report generation technology. COMPARISON: None. FINDINGS: LIVER: The liver measures 17.4 cm in length. There is prominence of the intrahepatic ducts. There is normal echotexture. GALLBLADDER: The gallbladder measures 8.5 cm length. The gallbladder wall is 3 mm. No shadowing gallstone. No pericholecystic fluid. Negative sonographic Patel''s sign. COMMON BILE DUCT: The common bile duct measures 7 mm. PANCREAS: Pancreatic duct measures 4 mm. RIGHT KIDNEY: The right kidney measures 11.5 x 4.3 x 6.0 cm. There is no hydronephrosis. No shadowing calculus. No focal lesion or perinephric collection is demonstrated. US/Abdomen Limited IMPRESSION: Mild dilatation of the common bile duct. There is also borderline enlargement of the intrahepatic ducts. There is no evidence of cholelithiasis or cholecystitis. If indicated further evaluation with MRI may be beneficial. Electronically Signed: Bright Mcdowell MD at 18:28 EST ,
[2022-11-26 07:38] LABS: AST(SGOT) 21 U/L (15-37); Alanine Aminotransfer ALT/SGPT 19 U/L (16-61); Albumin, Serum 2.8 g/dL (3.2-5.0); Alkaline Phosphatase 40 U/L (45-117); Bilirubin, Direct 0.29 mg/dL (0.00-0.30); Globulin 3.4 g/dL (2.2-4.2); Protein, Total 6.2 g/dL (6.4-8.2)
[2022-11-26] MEDS: Chlorhexidine 15 ML PO ×2 (08:35→22:45)
[2022-11-26] MEDS: Enoxaparin 40 MG/0.4 ML Syringe SC (08:35)
--- NOTE | 2022-11-26 09:03 | PCM.PN.HOSP ---
Subjective Subjective Intubated, no issues overnight Objective Data Objective Data Vital Signs: Vital Signs Temp Pulse Resp BP Pulse Ox O2 Del Method O2 Flow Rate 100 F H 66 14 98/67 97 Mechanical Ventilator 2 11/26/22 08:00 11/26/22 08:00 11/26/22 08:00 11/26/22 08:00 11/26/22 08:00 11/26/22 08:00 11/25/22 02:35 FiO2 25 11/26/22 08:00 Oxygen Flow Rate (L/min) 2 Oxygen Delivery Method Mechanical Ventilator Weight: 137 lb 5.568 oz Body Mass Index (BMI) 19.8 Intake & Output: Intake and Output for Last 24 Hours 11/25/22 11/26/22 11/27/22 03:59 03:59 03:59 Intake Total 1118.66 / 1118.66 1601.50 / 1856.00 1315.75 / 1315.75 Output Total 900 / 900 575 / 575 Balance 1118.66 / 1118.66 701.50 / 956.00 740.75 / 740.75 Lab / Micro Data Result Diagrams: 11/26/22 03:20 11/26/22 03:20 Labs: Laboratory Results - last 24 hr 11/26/22 03:20: WBC 9.5, RBC 4.29 L, Hgb 12.2 L, Hct 38.7 L, MCV 90.2, MCH 28.4, MCHC 31.5 L, RDW Std Deviation 48.4 H, RDW Coeff of Caterina 14.7 H, Plt Count 231, MPV 9.1, Immature Gran % (Auto) 0.300, Neut % (Auto) 67.9, Lymph % (Auto) 21.2, [place] % (Auto) 7.6, Eos % (Auto) 2.7, Baso % (Auto) 0.3, Absolute Neuts (auto) 6.4, Absolute Lymphs (auto) 2.01, Nucleated RBC % 0 11/26/22 03:20: Sodium 136, Potassium 3.9, Chloride 104, Carbon Dioxide 25.0, Anion Gap 7, BUN 18, Creatinine 0.72, Estim Creat Clear Calc 109.03, Est GFR (MDRD) Af Amer 148, Est GFR (MDRD) Non-Af 122, BUN/Creatinine Ratio 24.9 H, Glucose 96, Calcium 8.4 L 11/26/22 03:20: Total Bilirubin 1.40 H, Direct Bilirubin 0.29, AST 21, ALT 19, Alkaline Phosphatase 40 L, Total Protein 6.2 L, Albumin 2.8 L, Globulin 3.4 Micro: Microbiology 11/25/22 03:27 Sputum, Induced/Lukens Gram Stain - Final Physical Exam Const General Appearance: intubated and patient mechanically ventilated HEENT normocephalic Eyes PERRL and conjunctivae normal Neck supple and no JVD Resp normal respiratory effort, no retractions and no use of accessory muscles Resp Narrative: The left Auscultation: Negative for crackles, rales, rhonchi or wheezes Cardio regular rate, regular rhythm, S1 normal heart sound, S2 normal heart sound and no murmurs GI soft to palpation and non-distended; Negative for hepatosplenomegaly Extremity no clubbing, cyanosis or edema Skin no rashes or lesions noted Neuro Neuro Narrative: Intubated Psych Appearance: intubated Assessment & Plan Assessment/Plan (1) Opioid overdose: (2) Respiratory acidosis: (3) Altered mental status: PLAN: Plan 1. Altered mental status secondary to acute toxic encephalopathy with acute hypercapnic respiratory failure due to opioid overdose ?Patient intubated to protect airway, s/p intubation now. CT of the brain is unremarkable ? She we will admit to ICU, continue to monitor the mechanical ventilator ?Patient has not required any use of IV fentanyl or propofol drips ?Appreciate assembly line supervisor assistance 2. Polysubstance use, urine tox positive for amphetamine, cannabinoids ?Patient with suspected long acting synthetic opioid not easily detected on urine tox DVT: Lovenox Charges/Coding Visit Charges Inpatient E&M: 06083 Subs Hosp L2
[2022-11-26] MEDS: Acetaminophen 650 MG/20 ML UDC GT (13:33)
[2022-11-26] MEDS: Vital AF 1.2 Cal Liquid 1,000 ML 30 ML GT (17:12)
[2022-11-27] VITALS (31 sets, daily range): BP systolic 92–123; BP diastolic 53–85; PULSE 59–119; RESP 14–20; TEMP 36.7–38.2; O2SAT 94–100
[2022-11-27] MEDS: 0.9% Normal Saline 1,000 ML 75 ML IV (05:51)
[2022-11-27] MEDS: 0.9% Saline Lock 10 ML Syringe IV (05:51)
[2022-11-27 05:57] LABS: Absolute Lymphocyte Count 1.31 X10^3/uL (0.83-4.51); Absolute Neutrophil Count 5.1 X10^3/uL (2.0-7.7); Basophil# 0.01 X10^3/uL; Basophil% 0.1 % (0-1); Eosinophil# 0.15 X10^3/uL; Eosinophils% 2.1 % (0-5); Hematocrit 34.8 % (40-54); Hemoglobin 11.1 g/dL (13.0-16.5); Lymphocyte # 1.31 X10^3/ul (0.83-4.51); Mean Corp Hgb Conc 31.9 g/dL (32-36); Mean Corpuscular Hgb 28.6 pg (27.0-32.0); Mean Corpuscular Volume 89.7 fL (80-94); Mean Platelet Vol. 9.1 fl (6.2-12.0); Monocyte# 0.65 X10^3/uL; Monocyte% 8.9 % (0-10); NRBC Flagged by Analyzer 0 % (0-5); Neutrophil # 5.14 X10^3/uL (2.7-7.7); Neutrophil % 70.5 % (47-70); Platelet Count 205 K/mm3 (150-450); RBC Distribution Width CV 14.6 % (11.6-14.6); RBC Distribution Width SD 47.6 fl (35.1-43.9); Red Blood Count 3.88 M/mm3 (4.6-6.2); White Blood Count 7.3 K/mm3 (4.4-11.0)
[2022-11-27 06:10] LABS: Anion Gap 7 (5-15); BUN 11 mg/dL (7-18); BUN/Creat Ratio 21.3 RATIO (10-20); Calcium,Total 7.3 mg/dL (8.5-10.1); Chloride 109 mmol/L (98-107); Creatinine, Serum 0.52 mg/dL (0.70-1.30); EST Glomerular Filtration Rate 180 mL/min (>60); Est Glom Filt Rate - Afr Amer 217 mL/min (>60); Glucose 98 mg/dL (74-106); Magnesium 1.6 mg/dL (1.6-2.6); Phosphorus 2.6 mg/dL (2.5-4.9); Potassium 3.2 mmol/L (3.5-5.1); Sodium Level 140 mmol/L (136-145)
[2022-11-27 06:20] LABS: Allen Test Positive; Base Excess 1 mmol/L (-2 to +2); Bicarbonate 25.4 mmol/L (22-26); Blood Gas Specimen Type ART; FI02 25; Mode CPAP/PS; O2 Delivery Device Adult Vent; PEEP 5; PO2 70 mmHG (75-100); PS 5; SITE L Radial; SO2 94 % (95-99); Total Carbon Dioxide 27 mmol/L; pCO2 38.2 mmHg (35-45); pH 7.43 (7.35-7.45)
--- NOTE | 2022-11-27 06:38 | PCM.PN.INT ---
Assessment & Plan Assessment/Plan (1) Acute respiratory failure: (2) Altered mental status: (3) Opioid overdose: PLAN: Plan RECOMMENDATIONS: 1. Replace potassium through OG prior to extubation 2. Okay to proceed with extubation 3. Monitor for possible alcohol/opiate withdrawal 4. Bedside swallow evaluation prior to p.o. 5. Potential discharge tomorrow pending respiratory response 6. Continue as needed bronchodilators IMPRESSIONS: 1. Acute hypercarbic respiratory failure secondary to presumed drug overdose Patient appears to have an overdose syndrome with opiates. Patient failed Narcan rescue and is currently mechanically ventilated. ABG shows adequate oxygenation and ventilation on the current settings. Patient does have some hyperinflation with baseline smoking, so will continue on as needed DuoNeb therapy. Patient appears to be doing well at this time. We will proceed with extubation after potassium is replaced. Patient will have potassium repleted as a swallow evaluation will be necessary before pills can be given. 2. Toxic encephalopathy Improving. Patient initially with elevated carbon dioxide, likely secondary to drug overdose. Cannot exclude an element of hypoxic encephalopathy but this is unlikely given continued improvement. We will continue to monitor clinically. Patient does not appear to have a focal neurologic exam at this time, so stroke is unlikely. Seizures would be a consideration, but no clinical seizures are noted. Defer to hospitalist on whether EEG would be necessary at this time. 3. Polysubstance abuse Patient reportedly has had issues with cannabinoids, methamphetamines and alcohol in the past. Patient would benefit from withdrawal assistance. 4. Dilated CBD and intrahepatic ducts Unclear significance. Patient with no formal obstruction. LFTs are not suggestive of biliary stasis. This can likely be worked up as an outpatient. TIME: 34 minutes critical care time spent addressing patient's acute hypercarbic respiratory failure, toxic encephalopathy, review of all data and collaboration with care team. Subjective Subjective Patient interacting, maintaining eye contact and following commands. Patient is denying any pain. Patient was able to tolerate a full hour of spontaneous breathing trial prior to my evaluation. Patient was tolerating tube feeds prior to spontaneous breathing trial. Patient did have a mild fever overnight, but no change in secretions noted Objective Data Objective Data Vital Signs: Vital Signs Temp Pulse Resp BP Pulse Ox O2 Del Method O2 Flow Rate 38.2 C H 88 18 107/69 97 Mechanical Ventilator 2 11/27/22 05:00 11/27/22 05:03 11/27/22 05:45 11/27/22 05:00 11/27/22 05:03 11/27/22 05:00 11/25/22 02:35 FiO2 25 11/27/22 05:00 Oxygen Flow Rate (L/min) 2 Oxygen Delivery Method Mechanical Ventilator Weight: 62.4 kg Body Mass Index (BMI) 19.8 Intake & Output: Intake and Output for Last 24 Hours 11/25/22 11/26/22 11/27/22 23:59 23:59 23:59 Intake Total 2620.16 / 2620.16 2532.00 / 2532.00 1476.50 / 1476.50 Output Total 500 / 900 2375 / 2375 1380 / 1380 Balance 2120.16 / 1720.16 157.00 / 157.00 96.50 / 96.50 Lab / Micro Data Attestation: I reviewed the patient's lab results. Result Diagrams: 11/27/22 05:40 11/27/22 05:40 Labs: Laboratory Results - last 24 hr 11/26/22 03:20: Total Bilirubin 1.40 H, Direct Bilirubin 0.29, AST 21, ALT 19, Alkaline Phosphatase 40 L, Total Protein 6.2 L, Albumin 2.8 L, Globulin 3.4 11/27/22 05:40: WBC 7.3, RBC 3.88 L, Hgb 11.1 L, Hct 34.8 L, MCV 89.7, MCH 28.6, MCHC 31.9 L, RDW Std Deviation 47.6 H, RDW Coeff of Caterina 14.6, Plt Count 205, MPV 9.1, Immature Gran % (Auto) 0.400, Neut % (Auto) 70.5 H, Lymph % (Auto) 18.0 L, [place] % (Auto) 8.9, Eos % (Auto) 2.1, Baso % (Auto) 0.1, Absolute Neuts (auto) 5.1, Absolute Lymphs (auto) 1.31, Nucleated RBC % 0 11/27/22 05:40: Sodium 140, Potassium 3.2 L, Chloride 109 H, Carbon Dioxide 24.0, Anion Gap 7, BUN 11, Creatinine 0.52 L, Estim Creat Clear Calc 150.00, Est GFR (MDRD) Af Amer 217, Est GFR (MDRD) Non-Af 180, BUN/Creatinine Ratio 21.3 H, Glucose 98, Calcium 7.3 L, Phosphorus 2.6, Magnesium 1.6 Micro: Microbiology 11/25/22 03:27 Sputum, Induced/Lukens Gram Stain - Final 11/25/22 03:27 Sputum, Induced/Lukens Respiratory Culture - Preliminary Appears to be normal respiratory deanne. Further studies to follow. ABG Data ABG results: ABG 11/27/22 06:14 Specimen Type ART Sample Site L Radial pH 7.43 Bicarbonate Actual 25.4 Total CO2 27 Base Excess 1 O2 Saturation 94 L O2 % 25 ABG pCO2 38.2 ABG pO2 70 L Heber Test Positive O2 Delivery Device Adult Vent Vent Mode CPAP/PS POC PEEP 5 POC Pressure Suppt 5 Attestation: I personally reviewed and interpreted this ABG as follows: (Partially compensated metabolic alkalosis) Radiography Diagnostic Testing: Radiology Impression Abdomen Ultrasound 11/26/22 07:23 IMPRESSION: Mild dilatation of the common bile duct. There is also borderline enlargement of the intrahepatic ducts. There is no evidence of cholelithiasis or cholecystitis. If indicated further evaluation with MRI may be beneficial. Electronically Signed: Bright Mcdowell MD at 18:28 EST , Physical Exam Const alert and no apparent distress Constitutional Narrative: Prominent frontal ridge. Good vent synchrony. Following commands today. Not currently on sedation. General Appearance: patient mechanically ventilated HEENT normocephalic and head/scalp atraumatic Eyes PERRL, EOMs intact bilaterally and conjunctivae normal Eyes Narrative: Pupils minimally responsive Neck supple and no JVD Resp Auscultation: diminished lung sounds; Negative for rales, rhonchi or wheezes Cardio regular rate, regular rhythm, S1 normal heart sound, S2 normal heart sound, no murmurs, no rub and no gallops GI normal to inspection, nondistended, normoactive bowel sounds Extremity no clubbing, cyanosis or edema Neuro CN's II-XII intact bilaterally, moves all extremities and no focal motor deficits Neuro Narrative: Symmetric response to aggressive stimulation. Positive cough and gag. Pupils slow to respond Psych Mood & Affect: flat affect Charges/Coding Procedures Hospitalists Procedures: 29434 Critial Care 1st Hr
[2022-11-27] MEDS: Potassium Chloride Oral Soln 20 MEQ/15 ML UDC 40 MEQ GT (07:47)
[2022-11-27] MEDS: Enoxaparin 40 MG/0.4 ML Syringe SC (07:47)
--- NOTE | 2022-11-27 08:54 | PCM.PN.HOSP ---
Subjective Subjective Intubated but alert and follows commands Objective Data Objective Data Vital Signs: Vital Signs Temp Pulse Resp BP Pulse Ox O2 Del Method O2 Flow Rate 100.4 F H 90 14 116/71 94 Mechanical Ventilator 2 11/27/22 08:00 11/27/22 08:00 11/27/22 08:00 11/27/22 08:00 11/27/22 08:00 11/27/22 08:00 11/25/22 02:35 FiO2 25 11/27/22 08:00 Oxygen Flow Rate (L/min) 2 Oxygen Delivery Method Mechanical Ventilator Weight: 137 lb 9.095 oz Body Mass Index (BMI) 19.8 Intake & Output: Intake and Output for Last 24 Hours 11/26/22 11/27/22 11/28/22 03:59 03:59 03:59 Intake Total 1601.50 / 1856.00 2783.50 / 2783.50 1125.00 / 1125.00 Output Total 900 / 900 2825 / 2825 530 / 530 Balance 701.50 / 956.00 -41.50 / -41.50 595.00 / 595.00 Lab / Micro Data Result Diagrams: 11/27/22 05:40 11/27/22 05:40 Labs: Laboratory Results - last 24 hr 11/27/22 05:40: WBC 7.3, RBC 3.88 L, Hgb 11.1 L, Hct 34.8 L, MCV 89.7, MCH 28.6, MCHC 31.9 L, RDW Std Deviation 47.6 H, RDW Coeff of Caterina 14.6, Plt Count 205, MPV 9.1, Immature Gran % (Auto) 0.400, Neut % (Auto) 70.5 H, Lymph % (Auto) 18.0 L, [place] % (Auto) 8.9, Eos % (Auto) 2.1, Baso % (Auto) 0.1, Absolute Neuts (auto) 5.1, Absolute Lymphs (auto) 1.31, Nucleated RBC % 0 11/27/22 05:40: Sodium 140, Potassium 3.2 L, Chloride 109 H, Carbon Dioxide 24.0, Anion Gap 7, BUN 11, Creatinine 0.52 L, Estim Creat Clear Calc 150.00, Est GFR (MDRD) Af Amer 217, Est GFR (MDRD) Non-Af 180, BUN/Creatinine Ratio 21.3 H, Glucose 98, Calcium 7.3 L, Phosphorus 2.6, Magnesium 1.6 Micro: Microbiology 11/25/22 03:27 Sputum, Induced/Lukens Gram Stain - Final 11/25/22 03:27 Sputum, Induced/Lukens Respiratory Culture - Final ABG Data ABG results: ABG 11/27/22 06:14 Specimen Type ART Sample Site L Radial pH 7.43 Bicarbonate Actual 25.4 Total CO2 27 Base Excess 1 O2 Saturation 94 L O2 % 25 ABG pCO2 38.2 ABG pO2 70 L Heber Test Positive O2 Delivery Device Adult Vent Vent Mode CPAP/PS POC PEEP 5 POC Pressure Suppt 5 Radiography Diagnostic Testing: Radiology Impression Abdomen Ultrasound 11/26/22 07:23 IMPRESSION: Mild dilatation of the common bile duct. There is also borderline enlargement of the intrahepatic ducts. There is no evidence of cholelithiasis or cholecystitis. If indicated further evaluation with MRI may be beneficial. Electronically Signed: Bright Mcdowell MD at 18:28 EST , Physical Exam Const alert General Appearance: intubated and patient mechanically ventilated HEENT normocephalic Eyes PERRL and conjunctivae normal Neck supple and no JVD Resp normal respiratory effort, no retractions and no use of accessory muscles Resp Narrative: The left Auscultation: Negative for crackles, rales, rhonchi or wheezes Cardio regular rate, regular rhythm, S1 normal heart sound, S2 normal heart sound and no murmurs GI soft to palpation and non-distended; Negative for hepatosplenomegaly Extremity no clubbing, cyanosis or edema Skin no rashes or lesions noted Neuro Neuro Narrative: Intubated Psych Appearance: intubated Assessment & Plan Assessment/Plan (1) Opioid overdose: (2) Respiratory acidosis: (3) Altered mental status: PLAN: Plan 1. Altered mental status secondary to acute toxic encephalopathy with acute hypercapnic respiratory failure due to opioid overdose ?Patient intubated to protect airway, s/p intubation now. CT of the brain is unremarkable ? we will admit to ICU, continue to monitor the mechanical ventilator ?Patient has not required any use of IV fentanyl or propofol drips ?Appreciate furnace operator assistance 2. Polysubstance use, urine tox positive for amphetamine, cannabinoids ?Patient with suspected long acting synthetic opioid not easily detected on urine tox DVT: Lovenox Charges/Coding Visit Charges Inpatient E&M: 14318 Subs Hosp L2
[2022-11-27] MEDS: CHLORHEXIDINE GLUC 2% CLOTH 1 EACH TOWELETTE TOPICAL (09:50)
[2022-11-28] VITALS (11 sets, daily range): BP systolic 84–110; BP diastolic 59–88; PULSE 73–98; RESP 16–22; TEMP 36.8–37.4; O2SAT 94–99
[2022-11-28 05:41] LABS: Absolute Lymphocyte Count 1.41 X10^3/uL (0.83-4.51); Basophil# 0.03 X10^3/uL; Basophil% 0.6 % (0-1); Eosinophil# 0.25 X10^3/uL; Eosinophils% 4.8 % (0-5); Hematocrit 40.1 % (40-54); Hemoglobin 13.3 g/dL (13.0-16.5); Lymphocyte # 1.41 X10^3/ul (0.83-4.51); Lymphocyte % 27.1 % (19-41); Mean Corp Hgb Conc 33.2 g/dL (32-36); Mean Corpuscular Volume 87.6 fL (80-94); Mean Platelet Vol. 8.9 fl (6.2-12.0); Monocyte# 0.52 X10^3/uL; NRBC Flagged by Analyzer 0 % (0-5); Neutrophil # 2.98 X10^3/uL (2.7-7.7); Neutrophil % 57.3 % (47-70); Platelet Count 226 K/mm3 (150-450); RBC Distribution Width CV 14.5 % (11.6-14.6); Red Blood Count 4.58 M/mm3 (4.6-6.2); White Blood Count 5.2 K/mm3 (4.4-11.0)
[2022-11-28 06:13] LABS: Anion Gap 7 (5-15); BUN 16 mg/dL (7-18); BUN/Creat Ratio 21.8 RATIO (10-20); Calcium,Total 8.7 mg/dL (8.5-10.1); Chloride 106 mmol/L (98-107); Creatinine, Serum 0.73 mg/dL (0.70-1.30); EST Glomerular Filtration Rate 120 mL/min (>60); Est Glom Filt Rate - Afr Amer 145 mL/min (>60); Estimated Creatinine Clearance 106.85 ml/min; Glucose 139 mg/dL (74-106); Potassium 3.7 mmol/L (3.5-5.1); Sodium Level 140 mmol/L (136-145)
--- NOTE | 2022-11-28 07:30 | PCM.PN.INT ---
Assessment & Plan Assessment/Plan (1) Acute respiratory failure: (2) Altered mental status: (3) Opioid overdose: PLAN: Plan RECOMMENDATIONS: 1. Continue to encourage incentive spirometer use and mobilize patient as tolerated. 2. Continue appropriate DVT prophylaxis. 3. Continue nicotine replacement therapy. 4. The patient is medically stable for transfer out of the intensive care unit versus direct discharge home. 5. We will sign off at this time. Please call with any additional questions. IMPRESSIONS: 1. Acute hypercarbic respiratory failure secondary to presumed drug overdose The patient presented with presumptive overdose secondary to opiates. He did require invasive mechanical ventilatory support, but has been successfully extubated without any residual pulmonary sequelae. He is doing well from a respiratory perspective on room air. The patient does have some hyperinflation with baseline smoking, so will continue on as needed DuoNeb therapy. 2. History of polysubstance abuse The patient reportedly has had issues with cannabinoids, methamphetamines and alcohol in the past. He appears stable from a clinical perspective without any evidence of active withdrawal. This note was generated with Rattle dictation software. It may contain incorrect words, spelling, and punctuation that were not noted in checking the note before signing. Subjective Subjective The patient was seen and examined at the bedside this morning. Events from the last 24 hours have been reviewed. The patient is currently afebrile, hemodynamically stable and maintaining appropriate oxygen saturations on room air. No overnight issues were identified by the nursing staff. The patient is resting comfortably without any specific complaints. Objective Data Objective Data The patient's most recent lab work, culture data and imaging studies have all been personally reviewed. Sputum culture has not demonstrated any growth to date. Vital Signs: Vital Signs Temp Pulse Resp BP Pulse Ox O2 Del Method O2 Flow Rate 99.4 F H 76 22 H 103/70 96 Room Air 2 11/28/22 04:00 11/28/22 06:00 11/28/22 06:00 11/28/22 06:00 11/28/22 07:23 11/28/22 07:23 11/25/22 02:35 FiO2 25 11/27/22 08:00 Oxygen Flow Rate (L/min) 2 Oxygen Delivery Method Room Air Weight: 137 lb 9.095 oz Body Mass Index (BMI) 19.8 Intake & Output: Intake and Output for Last 24 Hours 11/26/22 11/27/22 11/28/22 23:59 23:59 23:59 Intake Total 2532.00 / 2532.00 2717.75 / 2717.75 400 / 400 Output Total 2375 / 2375 3780 / 3780 725 / 725 Balance 157.00 / 157.00 -1062.25 / -1062.25 -325 / -325 Lab / Micro Data Attestation: I reviewed the patient's lab results. Result Diagrams: 11/28/22 05:30 11/28/22 05:30 Labs: Laboratory Results - last 24 hr 11/28/22 05:30: WBC 5.2, RBC 4.58 L, Hgb 13.3, Hct 40.1, MCV 87.6, MCH 29.0, MCHC 33.2, RDW Std Deviation 46.0 H, RDW Coeff of Caterina 14.5, Plt Count 226, MPV 8.9, Immature Gran % (Auto) 0.200, Neut % (Auto) 57.3, Lymph % (Auto) 27.1, [place] % (Auto) 10.0, Eos % (Auto) 4.8, Baso % (Auto) 0.6, Absolute Neuts (auto) 3.0, Absolute Lymphs (auto) 1.41, Nucleated RBC % 0 11/28/22 05:30: Sodium 140, Potassium 3.7, Chloride 106, Carbon Dioxide 27.0, Anion Gap 7, BUN 16, Creatinine 0.73, Estim Creat Clear Calc 106.85, Est GFR (MDRD) Af Amer 145, Est GFR (MDRD) Non-Af 120, BUN/Creatinine Ratio 21.8 H, Glucose 139 H, Calcium 8.7 Micro: Microbiology 11/25/22 03:27 Sputum, Induced/Lukens Gram Stain - Final 11/25/22 03:27 Sputum, Induced/Lukens Respiratory Culture - Final Physical Exam Const alert, oriented x3 and no apparent distress General Appearance: cooperative HEENT normocephalic and head/scalp atraumatic Eyes PERRL, EOMs intact bilaterally and conjunctivae normal Neck supple General: trachea midline Chest inspection of chest normal Resp normal respiratory effort Auscultation: diminished lung sounds; Negative for rales, rhonchi or wheezes Cardio regular rate and regular rhythm GI normal to inspection, nondistended, normoactive bowel sounds Extremity no clubbing, cyanosis or edema Skin no rashes or lesions noted Neuro CN's II-XII intact bilaterally, moves all extremities and no focal motor deficits Psych cooperative and affect normal Charges/Coding Visit Charges Inpatient E&M: 00164 Subs Hosp L2
[2022-11-28] MEDS: Enoxaparin 40 MG/0.4 ML Syringe SC (10:17)
[2022-11-28] MEDS: Ensure Plus High Protein 120 ML LIQUID PO (10:18)
--- NOTE | 2022-11-28 11:40 | DCINST_ITS ---
Discharge Instructions Diet Discharge Diet: No restrictions Activity Discharge Activity: Return to Normal Activity Weight Bearing Status: Weight bearing as tolerated Dressing / Incision Call your doctor if you observe: Fever of 101 or Higher, Shortness of breath, Dizziness and Swelling in the ankles Follow Up Care Test Results: Test results from this visit will be discussed in further detail at your follow- up appointment, if applicable. Discharge Plan Admission Admit Date/Time: 11/25/22 02:18 Primary Reason for Your Visit: acute opioid overdose Attending Provider: Peg Fish Primary Care Provider: Care Physician,No Primary Consulting Providers: Sreedhar Jha ; Heber Walters ; Jong Wilkes ; Jason Samson ; Dorota Aleman NP ; Ana Maria Vazquez ; Alex Shi Instructions Patient Instructions: ED Opioid Withdrawal, ED Overdose, Opiate Discharge Orders/Prescriptions Prescriptions: Continued hydrocortisone 2.5 % ointment 1 applic topical BID 14 Days Qty: 28.35 0RF Discontinued cephalexin [cephalexin] 500 MG capsule 500 mg PO Q6 Qty: 40 0RF Referrals / Follow Up: Care Physician,No Primary [Primary Care Provider] - Disposition Disposition (needs filled in before D/C Order can be placed): Home, Self Care
--- NOTE | 2022-11-28 11:40 | DS.PCM_ITS ---
Providers Date of Admission: 11/25/22 Date of Discharge: 11/28/22 Primary Care Physician: Whitney Primary Care Phys Consultations 11/25/22 03:34 Consult: Stone Carver / Pulmonary Medicine Routine Consulting Provider: Pulmonary Medicine lenin Franklin Reason for Consult: AMS/opioied overdose EMERGENT Consult: No MD Notified: Yes Date Notified: 11/25/22 Time Notified: 02:22 Method of Notification: Text Reason For Visit: AMS Diagnosis Discharge Diagnosis (1) Acute respiratory failure: Status: Acute Code(s): J96.00 - Acute respiratory failure, unspecified whether with hypoxia or hypercapnia (2) Altered mental status: Status: Acute Code(s): R41.82 - Altered mental status, unspecified (3) Opioid overdose: Status: Acute Code(s): T40.2X1A - Poisoning by other opioids, accidental (unintentional), initial encounter Medications at Discharge Home Medications hydrocortisone 2.5 % topical ointment 1 applic topical BID 14 days #28.35 grams 01/28/22 Hospital Course Operations None Procedures None Summary of Care Provided Minutes Spent on Discharge: 45 Hospital Course: Patient is a 52 y/o male with a PMH as outlined who was admitted via the ED on 11/24/2022 with a complaint of altered mental status. He was found unresponsive by his mother, but had a respiratory rate. He was given IV narcan and intranasal narcan byt remained confused, so he was brought in to the ED. in the ED, labs done showed bicarb of 30 labs otherwise unremarkable. Urine tox was positive for cannabinoids and amphetamines. Patient required a lot of Narcan but still remained obtunded so was started on Narcan drip and was emergently intubated to protect his airway. HE was admitted to the ICU and managed for acute hypercapnic respiratory failure due to presumptive drug overdose as well as toxic encephalopathy. CT brain was negative for any acute intracranial pathology. He didnt require any fentanyl or propofol drip. It was suspected aht he had ingested a suspected long acting synthetic opioid not easily detected on urine tox. Patient was eventually extubated to room air and did well. HE threatened to sign out MA on 11/28/2022. In light of patient being hemodynamically stable and not having any acute issues going on, he was discharged home on 11/28/2022. He is to follow up with his PCP and addiction medicine on outpatient basis. Patient seen and examined prior to discharge. His ex was by his bedside. He had no active complaints. He denied any fever, chills, cough, chest pain, palpitations, dizziness, nausea, vomiting or diarrhea. Review of systems is otherwise negative. Labs and vitals reviewed. Home meds reviewed and reconciled. Physical Exam Const alert, oriented x3 and no apparent distress General Appearance: cooperative and comfortable Orientation / Consciousness: awake Exam Limitations: no limitations HEENT normocephalic, head/scalp atraumatic, hearing grossly normal bilaterally and moist oral mucous membranes Mouth: oral and palatal mucosa normal Eyes PERRL, EOMs intact bilaterally and conjunctivae normal Neck no lymphadenopathy and supple Resp normal respiratory effort, no retractions, no use of accessory muscles and clear to auscultation bilaterally Cardio regular rate, regular rhythm, S1 normal heart sound, S2 normal heart sound and no murmurs GI normal to inspection, nondistended, normoactive bowel sounds, soft to palpation, non-tender and non-distended Extremity normal to inspection, full ROM and no clubbing, cyanosis or edema Skin no rashes or lesions noted and no wounds Neuro oriented x3, CN's II-XII intact bilaterally, moves all extremities and no focal motor deficits Sensorium / Orientation: awake and alert Motor Exam: strength 5/5 throughout Psych affect normal Weight / BMI Weight Weight: 137 lb 9.095 oz Body Mass Index (BMI) 19.8 ABG / Lab / Microbiology Data Result Diagrams: 11/28/22 05:30 11/28/22 05:30 Laboratory: Laboratory Results - last 24 hr 11/28/22 05:30: WBC 5.2, RBC 4.58 L, Hgb 13.3, Hct 40.1, MCV 87.6, MCH 29.0, MCHC 33.2, RDW Std Deviation 46.0 H, RDW Coeff of Caterina 14.5, Plt Count 226, MPV 8.9, Immature Gran % (Auto) 0.200, Neut % (Auto) 57.3, Lymph % (Auto) 27.1, [place] % (Auto) 10.0, Eos % (Auto) 4.8, Baso % (Auto) 0.6, Absolute Neuts (auto) 3.0, Absolute Lymphs (auto) 1.41, Nucleated RBC % 0 11/28/22 05:30: Sodium 140, Potassium 3.7, Chloride 106, Carbon Dioxide 27.0, Anion Gap 7, BUN 16, Creatinine 0.73, Estim Creat Clear Calc 106.85, Est GFR ( MDRD) Af Amer 145, Est GFR (MDRD) Non-Af 120, BUN/Creatinine Ratio 21.8 H, Glucose 139 H, Calcium 8.7 Microbiology: Microbiology 11/25/22 03:27 Sputum, Induced/Lukens Gram Stain - Final 11/25/22 03:27 Sputum, Induced/Lukens Respiratory Culture - Final D/C Instructions Discharge Diet: No restrictions Discharge Activity: Return to Normal Activity Weight Bearing Status: Weight bearing as tolerated Call your doctor if you observe: Fever of 101 or Higher, Shortness of breath, Dizziness and Swelling in the ankles Meaningful Use Info Meaningful Use Diagnoses (Choose all that apply): None applicable Discharge Plan Admission Admit Date/Time: 11/25/22 02:18 Primary Reason for Your Visit: acute opioid overdose Attending Provider: Peg Fish Primary Care Provider: Care Physician,Whitney Primary Consulting Providers: Sreedhar Jha ; Heber Walters ; Jong Wilkes ; Jason Samson ; Dorota Aleman NP ; Ana Maria Vazquez ; Alex Shi Instructions Patient Instructions: ED Opioid Withdrawal, ED Overdose, Opiate Discharge Orders/Prescriptions Prescriptions: Continued hydrocortisone 2.5 % ointment 1 applic topical BID 14 Days Qty: 28.35 0RF Discontinued cephalexin [cephalexin] 500 MG capsule 500 mg PO Q6 Qty: 40 0RF Referrals / Follow Up: Care Physician,No Primary [Primary Care Provider] - Disposition Disposition (needs filled in before D/C Order can be placed): Home, Self Care Charges/Coding Visit Charges Inpatient E&M: 16191 Disch Hosp >30min
--- NOTE | 2022-11-28 11:47 | CASEMGMT ---
BRITTNEY KUMAR [employer] SUPERVISOR JOSÉ to room to meet with patient for initial transition planning/care coordination assessment. BRITTNEY KUMAR introduced self and role at [facility]. Pt voices understanding and consents to assessment at this time. Pt sitting up in chair in room in no distress at this time. Family @ bedside and pt agreeable to to them being present for assessment. He is anxious to discharge. Pt is A/O at this time and answers all questions, but very brief w/his answers. Care providers, pharmacy, and demographics verified/updated at this time. PCP: No PCP. Pt provided w/Phys Directory/list of local PCP's Specialists: None Preferred Pharmacy: [facility] Insurance: [facility] Prescription Benefit: yes Living Will/HPOA: Pt does not currently have LW/HCPOA LNOK: Dtr, Josi. Son, James. 3 other children under age 18. Mother, Laura. Living Arrangements: Lives w/mother. His brother usually lives there, but he is currently in fpc. Pt states he is independent and does not need any assistance. Transportation: Pt states he does not drive and he usually walks to anywhere he needs to go. DME: Denies using any DME Pt wishes to return home and states has no concerns with going home. PLAN: Home. Angelo BRAY RN, CM
--- NOTE | 2022-11-28 11:50 | CASEMGMT ---
Social Work SW spoke with pt dgt Josi on phone. Josi asking for a family meeting at 10am to meet with pt regarding detox/drug rehab. VM received from pt mother Laura Lopez stating family meeting cannot happen without her present. SW met with pt and introduced self and role of SW. Pt dgt Josi, son James and Ex Dorota in pt room. Pt is agreeable to meet with SW and family. SW informed pt that mother phoned in and does not want meeting to happen without her. Pt agreeable proceeding with meeting at this time without mother present stating mother is always mad about something. SW discussed HCPOA and Living Will. Pt is agreeable to complete documents at this time. SW assisted with completion. Pt naming dgt Josi Mayfield primary, son James Mayfield secondary and sister Rachel Cruz third. Copies placed on pt chart and originals given to pt. SW then spoke with pt regarding recovery going forward. 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 Pt also uses marijuana. Extensive conversation with pt and family regarding family relationships, mental health and drug use. Pt states he has been in drug rehab multiple times and does not care to return there. Pt states he has seen a counselor at [facility] and has connected with [facility]ley at [facility]. Pt able to site that both had been helpful for a while but now has had a set back. After discussion of options and addressing issues moving forward, pt is agreeable to SW setting appointment at [facility]. Pt states he can walk there and transportation is not an issue. Pt plans to return home with his mother at time of discharge. Pt is able to states that this is not a good living situation and he needs to work on getting his own place. Phone call to [facility] and appointment made for 12/05 at 1230. Pt updated and agreeable. Pt denies any other needs at this time. Pt then stating he is leaving today, with or without physician approval, and requested SW let MD know. Beck LUGO updated and will contact AUDREY Farrell
--- NOTE | 2022-11-28 11:55 | NURSING ---
Patient stated that he is leaving whether he signs out or is discharged. Patient visibly frustrated but calm and cooperative with staff. Patient agreed to wait for doctor to be contacted to see if discharge was a possibility. Dr. Fish notified and agreed to discharge patient. Patient making comments that he is frustrated with family. Discharge education provided and reviewed with patient. Patient states that he has no questions at this time
== END 2022-11-28 12:05 | disposition home or self-care (01) | DRG 812 ==
LOC: ED 23:48 → ICU 11-25 03:21
PROVIDERS: Family Medicine; Internal Medicine Critical Care Medicine; Admitting Provider Internal Medicine; Emergency Provider Emergency Medicine; Visit Provider Student in an Organized Health Care Education/Training Program
DX: T40.2X1A Poisoning by other opioids, accidental (unintentional), initial encounter (principal); J96.02 Acute respiratory failure with hypercapnia; G92.9 Unspecified toxic encephalopathy; F15.10 Other stimulant abuse, uncomplicated; F17.210 Nicotine dependence, cigarettes, uncomplicated; F12.10 Cannabis abuse, uncomplicated; E87.6 Hypokalemia; R40.4 Transient alteration of awareness
CPT/HCPCS: 31500; 31720; 36600; 70450; 71045; 76705; 80048; 80053; 80076; 80307; 80329; 82077; 82248; 82803; 83735; 84100; 85025; 87070; 87205; 94002; 94003; 94660; 97116; 97162; 97166; 97530; 97802; 99252; 99285; 99406; J7030; A4216; G0463; G0480; J2405